=== PATIENT | male | born 1960 | race Two or more races ===

== ENCOUNTER → 2017-01-07 15:16 | Emergency (ER) | payer OTHER ==
[~2017-01-07 15:16] MED LIST: HYDROmorphone* 1 MG/ML 1 ML SYR IV ONE; HYDROmorphone* 1 MG/ML 1 ML SYR ONE; Ketorolac INJ* 30 MG/ML 1 ML VIAL IV ONE; Ondansetron INJ* 2 MG/ML VIAL IV ONE; Ondansetron INJ* 2 MG/ML VIAL ONE
--- NOTE | 2017-01-07 17:44 | RAD ---
Indication: Atraumatic LEFT ankle pain for a few days. Associated swelling. History of RIGHT foot stress fracture. History of renal failure. Comparison: January 03, 2017 Technique: AP, mortise, and lateral views LEFT ankle. Report: Bone density appears decreased throughout. Negative for fracture or radiographic stigmata of stress reaction. Normal articular alignment. Mild talocrural joint space narrowing. Diffuse severe soft tissue swelling grossly unchanged from the January 03, 2017 exam most suspicious for dependent edema secondary to systemic disease. Arterial vascular calcifications. Innumerable soft tissue phleboliths at the lower leg. IMPRESSION: Negative for fracture. No radiographic finding suspicious for osteomyelitis. Nonspecific chronic soft tissue swelling.
[2017-01-07 17:51] LABS: Hematocrit 34 % (42-52); Hemoglobin 11.4 g/dl (14.0-18.0); Mean Corpuscular HGB Conc 34 g/dl (31-36); Mean Corpuscular Hemoglobin 36 pg (27-31); Mean Platelet Volume 8 um3 (7.4-10.4); Red Blood Count 3.17 10^6/ul (4.0-5.4); Red Cell Distribution Width 16 % (10.5-15); White Blood Count 11.1 10^3/ul (3.5-10.8)
[2017-01-07 17:52] LABS: Comments Flag Yes; Mean Corpuscular Volume 107 fL (80-94)
[2017-01-07 18:10] LABS: Albumin 3.6 g/dL (3.2-5.2); BUN/Creatinine Ratio 24.1 (8-20); C Reactive Protein 86.65 mg/L (< 5.00); Calcium 8.6 mg/dL (8.6-10.3); EGFR African American 55.8 (>60); EGFR Non-African American 43.4 (>60); Globulin 3.6 g/dL (2-4); Total Bilirubin 0.5 mg/dL (0.2-1.0); Total Protein 7.2 g/dL (6.4-8.9); Uric Acid 8.3 mg/dL (4.4-7.6)
[2017-01-07 18:12] LABS: Potassium 4.9 mmol/L (3.5-5.0)
[2017-01-07 18:40] LABS: Erythrocyte Sed Rate 98 mm/Hr (0-20)
[2017-01-07 21:26] LABS: Add Path Review? NO
[2017-01-07 21:47] VITALS: BP 144/84
--- NOTE | 2017-01-08 13:59 | ED ---
Philip Aguirre Rebecca, scribed for Geo Royal MD on 01/07/17 at 1640 . Lower Extremity - HPI Summary HPI Summary: Pt is a 56 y/o M with a CC of L ankle pain and swelling. Sx began suddenly 10 days ago and have been constant since onset. Pain is discrete to the l ankle and currently severe, ranked 10/10 and characterized as sharp. Sx aggravated by movement, alleviated by nothing, unchanged by Tylenol and Oxycodone. Denies any mechanism of injury. Pt is unable to ambulate. Pt was evaluated by PCP and given an orthopedic device and a script for oxycodone. - History of Current Complaint Chief Complaint: EDExtremityLower Stated Complaint: LT LEG PAIN Time Seen by Provider: 01/07/17 16:38 Hx Obtained From: Patient Onset of Pain: Prior to Arrival Onset/Duration: Still Present - 10 days Severity Initially: Moderate Severity Currently: Severe Pain Intensity: 10 Pain Scale Used: 0-10 Numeric Timing: Constant Location: Is Discrete @ - L ankle Character Of Pain: Sharp Associated Signs And Symptoms: Positive: Swelling Aggravating Factor(s): Movement Alleviating Factor(s): Nothing Able to Bear Weight: No - Allergies/Home Medications Allergies/Adverse Reactions: Allergies Allergy/AdvReac Type Severity Reaction Status Date / Time Lactose Intolerance Allergy Diarrhea Verified 09/28/12 14:16 PMH/Surg Hx/FS Hx/Imm Hx Endocrine/Hematology History: Denies: Hx Diabetes, Hx Systemic Lupus Erythematosus Cardiovascular History: Reports: Hx Deep Vein Thrombosis, Hx Hypertension Denies: Hx Congestive Heart Failure GI History: Reports: Other GI Disorders - denies abnormal s/s History: Reports: Hx Dialysis - not current in 1991 prior to transplant, Hx Renal Disease, Other Problems/Disorders - kidney transplant pt states other kidney is not functioning,nephrectomy Musculoskeletal History: Reports: Other Musculoskeletal History - right thigh pain Denies: Hx Rheumatoid Arthritis, Hx Osteoporosis - Cancer History Hx Chemotherapy: No - Surgical History Surgery Procedure, Year, and Place: 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, kidney transplant 1992, Infectious Disease History: No Infectious Disease History: Denies: Traveled Outside the [place] in Last 30 Days - Family History Known Family History: Negative: Hypertension - Social History Alcohol Use: None Substance Use Type: Reports: None Smoking Status (MU): Never Smoked Tobacco Review of Systems Positive: Arthralgia - L ankle pain Positive: Other - L ankle swelling All Other Systems Reviewed And Are Negative: Yes Physical Exam Triage Information Reviewed: Yes Vital Signs On Initial Exam: Initial Vitals Temp Pulse Resp BP Pulse Ox 100.2 F 83 18 156/85 100 01/07/17 15:19 01/07/17 15:19 01/07/17 15:19 01/07/17 15:19 01/07/17 15:19 Vital Signs Reviewed: Yes Appearance: Positive: Well-Appearing, No Pain Distress Skin: Positive: Warm, Skin Color Reflects Adequate Perfusion, Dry Head/Face: Positive: Normal Head/Face Inspection Eyes: Positive: Normal ENT: Positive: Normal ENT inspection Neck: Positive: Supple, Nontender Respiratory/Lung Sounds: Positive: Clear to Auscultation, Breath Sounds Present Cardiovascular: Positive: RRR Abdomen Description: Positive: Nontender, Soft Bowel Sounds: Positive: Present Musculoskeletal: Positive: Other - Swollen L ankle, tender in any ROM or to palpation Neurological: Positive: Normal Psychiatric: Positive: Normal Diagnostics - Vital Signs Vital Signs Temp Pulse Resp BP Pulse Ox 01/07/17 16:00 100.2 F 83 20 156/84 100 01/07/17 15:24 100.7 F 01/07/17 15:19 100.2 F 83 18 156/85 100 - Laboratory Lab Results: Lab Results 01/07/17 01/07/17 01/07/17 Range/Units 17:30 17:30 20:15 WBC 11.1 H (3.5-10.8) 10^3/ul RBC 3.17 L (4.0-5.4) 10^6/ul Hgb 11.4 L (14.0-18.0) g/dl Hct 34 L (42-52) % MCV 107 H (80-94) fL MCH 36 H (27-31) pg MCHC 34 (31-36) g/dl RDW 16 H (10.5-15) % Plt Count 329 (150-450) 10^3/ul MPV 8 (7.4-10.4) um3 Neut % (Auto) 91.0 H (38-83) % Lymph % (Auto) 3.9 L (25-47) % Island % (Auto) 4.7 (1-9) % Eos % (Auto) 0.1 (0-6) % Baso % (Auto) 0.3 (0-2) % Absolute Neuts (auto) 10.1 H (1.5-7.7) 10^3/ul Absolute Lymphs (auto) 0.4 L (1.0-4.8) 10^3/ul Absolute Monos (auto) 0.5 (0-0.8) 10^3/ul Absolute Eos (auto) 0 (0-0.6) 10^3/ul Absolute Basos (auto) 0 (0-0.2) 10^3/ul Absolute Nucleated RBC 0 10^3/ul Nucleated RBC % 0 ESR 98 H (0-20) mm/Hr Sodium 135 (133-145) mmol/L Potassium 4.9 (3.5-5.0) mmol/L Chloride 108 (101-111) mmol/L Carbon Dioxide 20 L (22-32) mmol/L Anion Gap 7 (2-11) mmol/L BUN 40 H (6-24) mg/dL Creatinine 1.66 H (0.67-1.17) mg/dL Est GFR ( Amer) 55.8 (>60) Est GFR (Non-Af Amer) 43.4 (>60) BUN/Creatinine Ratio 24.1 H (8-20) Glucose 226 H (70-100) mg/dL Uric Acid 8.3 H (4.4-7.6) mg/dL Calcium 8.6 (8.6-10.3) mg/dL Total Bilirubin 0.50 (0.2-1.0) mg/dL AST 14 (13-39) U/L ALT 11 (7-52) U/L Alkaline Phosphatase 59 (34-104) U/L C-Reactive Protein 86.65 H (< 5.00) mg/L Total Protein 7.2 (6.4-8.9) g/dL Albumin 3.6 (3.2-5.2) g/dL Globulin 3.6 (2-4) g/dL Albumin/Globulin Ratio 1.0 (1-3) Fluid Source Cancelled Fluid Volume Cancelled Fluid Color Cancelled Fluid Appearance Cancelled Fluid WBC Cancelled Fluid RBC Cancelled Fluid Tot Cell Count Cancelled Fluid Neutrophils Cancelled Fluid Band Neutrophils Cancelled Fluid Lymphocytes Cancelled Fluid Reactive Lymphs Cancelled Fluid Monocytes Cancelled Fluid Eosinophils Cancelled Fluid Basophils Cancelled Fluid Promyelocytes Cancelled Fluid Myelocytes Cancelled Fluid Metamyelocytes Cancelled Fluid Blast Cells Cancelled Fluid Nucleated RBCs Cancelled Fluid Other Cells Cancelled Fluid Cell Count Rvw By Cancelled Fluid Crystals Fluid Comment Cancelled 01/07/17 Range/Units 20:15 WBC (3.5-10.8) 10^3/ul RBC (4.0-5.4) 10^6/ul Hgb (14.0-18.0) g/dl Hct (42-52) % MCV (80-94) fL MCH (27-31) pg MCHC (31-36) g/dl RDW (10.5-15) % Plt Count (150-450) 10^3/ul MPV (7.4-10.4) um3 Neut % (Auto) (38-83) % Lymph % (Auto) (25-47) % Island % (Auto) (1-9) % Eos % (Auto) (0-6) % Baso % (Auto) (0-2) % Absolute Neuts (auto) (1.5-7.7) 10^3/ul Absolute Lymphs (auto) (1.0-4.8) 10^3/ul Absolute Monos (auto) (0-0.8) 10^3/ul Absolute Eos (auto) (0-0.6) 10^3/ul Absolute Basos (auto) (0-0.2) 10^3/ul Absolute Nucleated RBC 10^3/ul Nucleated RBC % ESR (0-20) mm/Hr Sodium (133-145) mmol/L Potassium (3.5-5.0) mmol/L Chloride (101-111) mmol/L Carbon Dioxide (22-32) mmol/L Anion Gap (2-11) mmol/L BUN (6-24) mg/dL Creatinine (0.67-1.17) mg/dL Est GFR ( Amer) (>60) Est GFR (Non-Af Amer) (>60) BUN/Creatinine Ratio (8-20) Glucose (70-100) mg/dL Uric Acid (4.4-7.6) mg/dL Calcium (8.6-10.3) mg/dL Total Bilirubin (0.2-1.0) mg/dL AST (13-39) U/L ALT (7-52) U/L Alkaline Phosphatase (34-104) U/L C-Reactive Protein (< 5.00) mg/L Total Protein (6.4-8.9) g/dL Albumin (3.2-5.2) g/dL Globulin (2-4) g/dL Albumin/Globulin Ratio (1-3) Fluid Source Fluid Volume Fluid Color Fluid Appearance Fluid WBC Fluid RBC Fluid Tot Cell Count Fluid Neutrophils Fluid Band Neutrophils Fluid Lymphocytes Fluid Reactive Lymphs Fluid Monocytes Fluid Eosinophils Fluid Basophils Fluid Promyelocytes Fluid Myelocytes Fluid Metamyelocytes Fluid Blast Cells Fluid Nucleated RBCs Fluid Other Cells Fluid Cell Count Rvw By Fluid Crystals None seen Fluid Comment Result Diagrams: 01/07/17 17:30 01/07/17 17:30 Lab Statement: Any lab studies that have been ordered have been reviewed, and results considered in the medical decision making process. - Radiology Ankle XR Radiology Interpretation Completed By: Radiologist - Negative for fracture. No radiographic finding suspicious for osteomyelitis. Nonspecific chronic soft tissue swelling. Lower Extremity Course/Dx - Course Assessment/Plan: Mr. Payan is a 56 y/o M with a CC of L ankle swelling and severe pain for 10 days. No known injury. Cannot bear weight. He was administered Dilaudid, Toradol and Zofran in the ED. Discussed care of Dr. Pederson, who will evaluate pt in the ED. After evaluation, Dr. Pederson decided to diagnostically aspirate the joint. No fluid crystals seen in the fluid obtained via aspiration. Pt will be D/C to home with a Dx of synovitis with a followup with Dr. Pederson. - Diagnoses Provider Diagnoses: Synovitis - Physician Notifications Discussed Care of Patient With: Dr. Pederson, who will evaluate pt in the ED. After evaluation, at 1935, Dr. Pederson has decided to apirate the joint, diagnostically. Time Discussed With Above Provider: 19:01 Discharge - Discharge Plan Condition: Stable Disposition: HOME Referrals: Nehemiah Pederson MD [Medical Doctor] - (Follow up with Dr. Pederson next week. ) The documentation as recorded by the Philip pal Rebecca accurately reflects the service I personally performed and the decisions made by , Geo Royal MD.
--- NOTE | 2017-01-08 17:26 | CONS ---
CONSULTATION NOTE: DATE OF CONSULT: 01/07/17 - EMERGENCY DEPT HISTORY: The patient is a 56-year-old man, status post kidney transplant in 1992, with chronic lower extremity edema, who I myself had seen in clinic on 04/14 for a complaint of left posterior ankle pain, and diagnosed with left Achilles tendinitis, who presented to the emergency room on 01/07/17 with an acute worsening of that left ankle pain. ER staff informed me that on their exam with any passive range of motion of the left ankle, the patient had severe pain. The tenderness about the ankle also worried them for a left ankle joint infection. The patient had presented to the emergency department with a low-grade temperature 100.2 and is on many immunosuppressant medications. The patient had a history of gout in the contralateral right great toe MP joint, but described this pain as more severe. He described it as 10/10 and sharp. He described it as greatly worsened with movement of the left ankle and without any improvement with home care provided previously. I had seen the patient in clinic on 01/03/17. 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 He had had a contralateral right lower extremity DVT and is on chronic Coumadin. I had also noted 2 gouty attacks in the contralateral right foot. The patient presented to me with a complaint of 5 days of left posterior heel pain without any clear trigger. The patient's primary care doctor had started him on oral prednisone over and above the low- dose oral prednisone that the patient takes chronically as a result of being a kidney transplant patient. The patient had informed me that he did not believe that the prednisone had reduced his symptoms. The patient told me that he normally ambulates about the community without an assist device. On examination in the office, the patient had tenderness to palpation and re- creation of his pain with palpation of the Achilles tendon. He did not have pain or weakness with resisted active plantar flexion of the ankle, and he did have some pain with hyperpassive dorsiflexion of the ankle. He had some mild gastrocnemius tenderness to palpation. I diagnosed him with left Achilles tendinitis as well as chronic bilateral lower extremity edema. I instructed that he wear a tall walking boot that would rest the Achilles tendon and undergo physical therapy for Achilles tendon stretching and strengthening. I instructed him to follow up with me in 2 weeks to see if he had had an improvement in symptoms. The patient states that since that clinic visit, he had been wearing the tall boot some of the time. He finds the boot heavy and awkward to wear. The patient has not yet done physical therapy. The patient has been taking Tylenol for pain as well as oxycodone, the latter prescribed by his primary care physician. The patient reported some chills on 01/06/17, but had not taken his own temperature at home. His pain was worsening and so he presented to the emergency department. The patient reported to me that his pain was much improved by the time he saw me in the emergency department after he had received medication. Checking the ER tracking system, the patient had received Dilaudid 1 mg IV only. Toradol had been written for by the ED staff, but not delivered. It was just a single dose of Dilaudid, albeit 1 mg IV. No numbness or tingling. No other current joint pain. No current fevers, sweats, chills. PAST MEDICAL HISTORY: 1. Hypertension. 2. Cholelithiasis without obstruction. 3. Lymphedema of bilateral lower extremities. 4. Hypertriglyceridemia. 5. Gout. 6. Tubular adenoma. 7. Vitamin D and B12 deficiency. 8. DVT. 9. Chronic renal failure. 10. Macrocytic anemia. 11. Osteoporosis. 12. Venous insufficiency, bilateral lower extremities. PAST SURGICAL HISTORY: Orthotopic kidney transplant. MEDICATIONS: 1. Prednisone. 2. Vitamin D. 3. Cyanocobalamin. 4. Coumadin. 5. Imuran. 6. Atenolol. 7. Procardia. 8. Clonidine. 9. Cyclosporin. ALLERGIES: No known drug allergies. REVIEW OF SYSTEMS: No numbness or tingling. No other joint pain. No fevers, sweats, or chills. No chest pain, shortness of breath, skipped heart beats, or abdominal pain. PHYSICAL EXAM: Temperature 100.2 degrees Fahrenheit, pulse 83, respirations 18 , blood pressure 156/85, and pulse oximetry was 100% on room air. These were obtained at 3:19 p.m. on 01/07/17. No acute distress. The patient seems very comfortable, lying in a stretcher in the emergency department. He does appear somewhat despondent, depressed. Alert and oriented x3. Appropriate mood and affect. I did not assess the patient's gait. Well-coordinated bilateral upper and lower extremities. Bilateral lower extremities have edema of the lower legs, ankles, and feet, pitting, unchanged since my clinic visit on 01/03/17, 4 days previous. Left ankle exam reveals no increased soft tissue swelling compared to contralateral right ankle. No bruising. No skin defect. No skin erythema or increased warmth. Tenderness to palpation, mild about the anterior tibial talar joint. No pain whatsoever with passive range of motion of the left ankle prior to reaching the terminal ranges of motion. The patient's left ankle passive range of motion was 15 degrees of dorsiflexion and 30 degrees of plantar flexion. The patient had some mild discomfort at terminal dorsiflexion and plantar flexion, but within that range, had no discomfort whatsoever with rapid passive range of motion. No pain with resisted active dorsiflexion and plantar flexion, inversion or eversion of the ankle. Neurovascularly intact distally. Positive tenderness to palpation of the calcaneus at the insertion of the Achilles tendon. No Achilles tendon tenderness to palpation. No gastrocnemius tenderness to palpation. The patient's pain is reproduced with palpation of the insertion of the Achilles tendon. IMAGING: Three x-ray views of the left ankle obtained in the emergency department show some global joint space narrowing about the midfoot and ankle joints, but no osteophytes. No fracture. There are some subcutaneous calcifications present about the left ankle. ASSESSMENT: 1. Left ankle insertional Achilles tendinitis. 2. Possible left ankle gouty arthropathy. PLAN: 1. I spoke with the emergency department staff and confirmed that the patient had indeed been in 10/10, distressing pain when he first arrived in the emergency department. I confirmed that with any passive range of motion with the ED staff, the patient was in severe pain. This is entirely different from my clinical exam. So, I needed to confirm this. 2. Although I thought gouty arthropathy was less likely given the significant comfort in which I found the patient on my physical exam, I desired to rule out a gouty attack given the patient's anterior tibiotalar joint tenderness to palpation, residual; his low-grade temperature; his slightly elevated white blood cell count of 11.1 in the emergency department; and his significant level of pain prior to receiving Dilaudid in the emergency department. 3. Aspiration of left ankle joint was performed. Verbal consent, sterile technique, tolerated well. I injected 8 cc of lidocaine with epinephrine into the subcutaneous tissue at the level of the anteromedial portals for ankle arthroscopy as well as into the joint itself. I then returned 10 minutes later and performed an aspiration of the ankle joint in the same location. I aspirated 3 cc of red- tinged clear fluid. No clear purulence whatsoever. No cloudiness whatsoever. I applied a dressing and wrapped that with Coban over the ankle and instructed the patient to keep that aspiration site covered for 3 days to prevent an infection. 4. Sent the fluid sample for crystals, Gram stain, culture, and cell count. Crystals came back as negative, but the other 3 values could not be obtained at the lab and they stated it was because there was clotting of the sample. This is a surprise to me since there did not seem to be much blood at all in that sample. 5. Nonetheless, aspiration was successful in that it ruled out a gouty attack by crystals being negative. 6. Therefore, the patient's only diagnosis in my mind is insertional left Achilles tendinitis. Based on the patient's response to Dilaudid pain medication, there might be a psychiatric overlay to this as well. 7. I recommended that the patient choose shoe wear that is most comfortable, be it the tall walking boot or something else. 8. I recommend physical therapy for stretching and strengthening. 9. The patient may follow up with me as planned in a week and a half or sooner as needed. [id number]/CPS #: [id number] MTDD
== END | disposition home or self-care (01) ==
LOC: ED 15:16
DX: M76.62 Achilles tendinitis, left leg (principal); Z94.0 Kidney transplant status; I10 Essential (primary) hypertension; E78.1 Pure hyperglyceridemia; M10.9 Gout, unspecified; Z86.718 Personal history of other venous thrombosis and embolism; M81.0 Age-related osteoporosis without current pathological fracture
CPT/HCPCS: 20605; 36415; 80053; 84550; 85025; 85652; 86140; 87040; 87070; 87205; 87640; 87641; 89060; 96374; 96375; 99282; J1170; J1885; J2405

== ENCOUNTER 2017-01-28 15:23 | Emergency (ER) | payer OTHER ==
[2017-01-28 16:11] VITALS: BP 110/70
--- NOTE | 2017-01-28 22:47 | UC ---
Jose Aguirre SooYoung, scribed for Stephen Blanca MD on 01/28/17 at 1617 . Lower Extremity/Ankle HPI - HPI Summary HPI Summary: A 56 y/o M [place] [facility] [place] pain onset yesterday. Associated sx: erythema, edema, maxT of 101 F, chills, diaphoresis; edema to RLE. Denies CP, SOB, nausea, calf tenderness. Pt notes having issues with his LLE this month including L ankle tap, physical therapy. Alleviating factors: Tylenol for fever. PMHx: kidney transplant in 1992. Pt takes Warfarin, and anti-rejection medications. Non-smoker. Pt did not speak to his PCP today. - History of Current Complaint Chief Complaint: UCLowerExtremity Stated Complaint: LEG PAIN,FEVER Hx Obtained From: Patient Onset/Duration: Lasting Days - YESTERDAY, Still Present Severity Currently: Severe Pain Intensity: 10 Pain Scale Used: 0-10 Numeric Alleviating Factor(s): OTC Meds - alleviated fever - Allergies/Home Medications Allergies/Adverse Reactions: Allergies Allergy/AdvReac Type Severity Reaction Status Date / Time Lactose Intolerance Allergy Diarrhea Verified 01/28/17 16:12 PMH/Surg Hx/FS Hx/Imm Hx Previously Healthy: No Cardiovascular History: Hypertension, Deep Vein Thrombosis - Surgical History Surgical History: Yes Surgery Procedure, Year, and Place: 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, kidney transplant 1992, - Family History Known Family History: Negative: Hypertension - Social History Occupation: Employed Full-time Lives: With Family Alcohol Use: None Substance Use Type: None Smoking Status (MU): Never Smoked Tobacco Review of Systems Constitutional: Fever, Chills, Other - pos: diaphoresis Skin: Other - pos: erythema and warmth to LLE Musculoskeletal: Edema - bilat LE, Myalgia - pain LLE All Other Systems Reviewed And Are Negative: Yes Physical Exam Triage Information Reviewed: Yes Vital Signs: Initial Vital Signs Temp 98.7 F 01/28/17 15:30 Pulse 73 01/28/17 15:30 Resp 18 01/28/17 15:30 BP 114/63 01/28/17 15:30 Pulse Ox 98 01/28/17 15:30 Vital Signs Reviewed: Yes - Additional Comments The patient is well-nourished in no acute distress and in no acute pain. The skin is WARM TO TOUCH, DIAPHORETIC. HEENT: The head is normocephalic and atraumatic. The pupils are equal and reactive. The conjunctivae are clear and without drainage. Nares are patent and without drainage. Mouth reveals moist mucous membranes and the throat is without erythema and exudate. The external ears are intact. The ear canals are patent and without drainage. PERFORATED RIGHT TM. Neck is supple with full range of motion and non-tender. There are no carotid bruits. There is no neck vein distension. Respiratory: Chest is non-tender. Lungs are clear to auscultation and breath sounds are symmetrical and equal. Cardiovascular: Heart is regular rate and rhythm. There is no murmur or rub auscultated. There is no peripheral edema and pulses are symmetrical and equal. Abdomen: The abdomen is soft and non-tender. There is no organomegaly palpated. : L GROIN ADENOPATHY. Musculoskeletal: There is no back pain noted. Extremities are non-tender with full range of motion. There is good capillary refill. There is no peripheral edema or calf tenderness elicited. POPLITEAL PULSE IS GOOD; LEG IS WARM, RED STREAKS STARTING ON 1ST THIRD TOE TO DORSUM OF FOOT EXTENDING UP LEG; MARKED EDEMA; L CALF TENDERNESS. NO ANKLE PAIN. Neurological: Patient is alert and oriented to person, place and time. The patient has symmetrical motor strength in all four extremities. Cranial nerves are grossly intact. Deep tendon reflexes are symmetrical and equal in all four extremities. Psychiatric: The patient has an appropriate affect and does not exhibit any anxiety or depression. Lower Extremity Course/Dx - Course Course Of Treatment: Pt medications reviewed this visit. Normal BP reading and no follow-up instructions required. - Differential Dx/Diagnosis Differential Diagnosis/HQI/PQRI: Cellulitis, Osteomyelitis, Tendonitis Provider Diagnoses: Cellulitis of L leg - Physician Notifications Discussed Patient Care With: Dr. Gonzalez, nephrology; recommends D/C with Clindamyacin, f/u with him early next week. Time Discussed With Above Provider: 16:45 Instructed by Provider To: Have Pt Call For Appt. - early next week Discharge - Discharge Plan Condition: Stable Disposition: HOME Prescriptions: Clindamycin Cap(NF) [Cleocin 300 mg Cap(NF)] 300 mg PO TID #30 cap Patient Education Materials: Cellulitis (ED), Clindamycin (By mouth) Referrals: Elvira Hays MD [Primary Care Provider] - Reji Gonzalez MD [Medical Doctor] - 3 Days (F/U with Dr. Gonzalez early next week.) Additional Instructions: Follow up with Dr. Gonzalez early next week. Go to the Emergency Department if your symptoms worsen. The documentation as recorded by the Jose pal SooYoung accurately reflects the service I personally performed and the decisions made by me, Stephen Blanca MD.
== END 2017-01-28 17:08 | disposition home or self-care (01) ==
LOC: UCEAST 15:23
DX: L03.116 Cellulitis of left lower limb (principal); Z86.718 Personal history of other venous thrombosis and embolism; Z79.01 Long term (current) use of anticoagulants; I10 Essential (primary) hypertension; Z94.0 Kidney transplant status
CPT/HCPCS: 99202; G0463

== ENCOUNTER 2017-01-29 11:29 | Emergency (ER) | payer OTHER ==
[2017-01-29] MEDS ORDERED: Clindamycin 600 MG IVPREMIX(* 600 MG/50 ML SDV IV ONE (11:46)
[2017-01-29] MEDS: NS 0.9% 1000 ML* 1,000 ML IV ONE ×2 (11:46→12:51)
[2017-01-29 12:09] LABS: Comments Flag Yes; Hematocrit 30 % (42-52); Hemoglobin 10.1 g/dl (14.0-18.0); Mean Corpuscular HGB Conc 34 g/dl (31-36); Mean Corpuscular Hemoglobin 36 pg (27-31); Mean Platelet Volume 8 um3 (7.4-10.4); Red Blood Count 2.82 10^6/ul (4.0-5.4); Red Cell Distribution Width 16 % (10.5-15); White Blood Count 16.6 10^3/ul (3.5-10.8)
[2017-01-29 12:10] LABS: Add Diff/Slide Review? Slide Review Added; Mean Corpuscular Volume 107 fL (80-94)
[2017-01-29 12:24] LABS: Albumin 3.2 g/dL (3.2-5.2); BUN/Creatinine Ratio 20.5 (8-20); C Reactive Protein 240.55 mg/L (< 5.00); Calcium 8.5 mg/dL (8.6-10.3); EGFR African American 46.3 (>60); Globulin 3.2 g/dL (2-4); Magnesium 1.7 mg/dL (1.9-2.7); Phosphorus 2.1 mg/dL (2.5-5.0); Potassium 3.6 mmol/L (3.5-5.0); Total Bilirubin 0.8 mg/dL (0.2-1.0); Total Protein 6.4 g/dL (6.4-8.9); Troponin I 0.01 ng/mL (<0.04)
[2017-01-29] MEDS ORDERED: NS 0.9% 1000 ML* 1,000 ML IV ONE (12:48)
--- NOTE | 2017-01-29 12:57 | RAD ---
Indication: Fever. Single frontal view of the chest performed at 12:15 was reviewed. Comparison is made with previous exam dated July 18, 2012. No mediastinal shift is noted. Mild cardiomegaly is noted. No evidence of alveolar consolidation is noted. No pneumothorax is identified. IMPRESSION: NO ACTIVE CARDIOPULMONARY DISEASE IS NOTED.
--- NOTE | 2017-01-29 14:45 | ED ---
Philip Aguirre Rebecca, scribed for Vineet Grewal MD on 01/29/17 at 1136 . Lower Extremity - HPI Summary HPI Summary: Pt is a 56 y/o M BIBA who presents to ED c/o bilateral LE pain and swelling. Sx began gradually 3 days ago and have been constant and worsening since onset. Pain is bilateral, though significantly worse in the LLE. Pain is currently severe, ranked 10/10 and characterized as sharp. Pt reports he is unable to ambulate as of this morning. Sx aggravated by ambulation, alleviated by nothing , unchanged by Tylenol (last dose taken last night). Additionally c/o mild SOB and fever. Denies CP. Pt was evaluated by [facility] yesterday with a Dx of cellulitis for which he was prescribed Abx which are not alleviating sx. No PMHx DM, CHF. PSHx kidney transplant (1992) for which he is on steroids. - History of Current Complaint Chief Complaint: EDExtremityLower Stated Complaint: LEG PAIN Hx Obtained From: Patient Onset of Pain: Prior to Arrival Onset/Duration: Days Severity Initially: Moderate Severity Currently: Severe Pain Intensity: 10 Pain Scale Used: 0-10 Numeric Timing: Constant Location: Is Discrete @ - Bilateral LE, worse in the LLE Character Of Pain: Sharp Associated Signs And Symptoms: Positive: Fever, Other - mild SOB, denies CP Aggravating Factor(s): Ambulation Alleviating Factor(s): Nothing Able to Bear Weight: No - as of this morning - Allergies/Home Medications Allergies/Adverse Reactions: Allergies Allergy/AdvReac Type Severity Reaction Status Date / Time Lactose Intolerance Allergy Diarrhea Verified 01/28/17 16:12 Home Medications: Home Medications Warfarin TAB(*) [Coumadin TAB(*)] 5 mg PO SEE INSTRUCTIONS 01/29/17 [History Confirmed 01/29/17] PMH/Surg Hx/FS Hx/Imm Hx Endocrine/Hematology History: Denies: Hx Diabetes, Hx Systemic Lupus Erythematosus Cardiovascular History: Reports: Hx Deep Vein Thrombosis, Hx Hypertension - ON MEDS Denies: Hx Congestive Heart Failure, Hx Pacemaker/ICD GI History: Reports: Other GI Disorders - denies abnormal s/s History: Reports: Hx Dialysis - not current in 1991 prior to transplant, Hx Renal Disease, Other Problems/Disorders - kidney transplant pt states other kidney is not functioning,nephrectomy Musculoskeletal History: Reports: Other Musculoskeletal History - right thigh pain Denies: Hx Rheumatoid Arthritis, Hx Osteoporosis Sensory History: Denies: Hx Hearing Aid Psychiatric History: Denies: Hx Panic Disorder - Cancer History Hx Chemotherapy: No - Surgical History Surgery Procedure, Year, and Place: 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, kidney transplant 1992, Infectious Disease History: Denies: Traveled Outside the [place] in Last 30 Days - Family History Known Family History: Negative: Hypertension - Social History Alcohol Use: None Substance Use Type: Reports: None Smoking Status (MU): Never Smoked Tobacco Review of Systems Positive: Fever Negative: Chest Pain Positive: Shortness Of Breath - mild Positive: Arthralgia - bilateral LE pain, significantly worse in the LLE Positive: Other - Bilateral LE swelling Neurological: Negative Psychological: Normal All Other Systems Reviewed And Are Negative: Yes Physical Exam - Summary Physical Exam Summary: Gen: Moderately ill appearing, moderate pain distress. Skin: warm, color reflects adequate perfusion, dry Head: normal Eyes: EOMI, MANDIE ENT: normal Neck: supple, nontender Resp: CTA, breath sounds present Cardio: tachycardia Abd: soft, nontender Bowel: present Musc: strength/ROM intact, bilateral pedal edema, the LLE is erythematous and tender to touch Neuro: normal, sensory/motor intact, A&O x3 Psych: affect/mood appropriater Triage Information Reviewed: Yes Vital Signs On Initial Exam: Initial Vitals Temp Pulse Resp BP Pulse Ox 100.7 F 105 20 158/78 100 01/29/17 11:31 01/29/17 11:31 01/29/17 11:31 01/29/17 11:31 01/29/17 11:31 Vital Signs Reviewed: Yes Diagnostics - Vital Signs Vital Signs Temp Pulse Resp BP Pulse Ox 01/29/17 14:00 73 113/66 94 01/29/17 13:30 73 119/68 95 01/29/17 13:00 73 124/72 95 01/29/17 12:30 77 115/68 96 01/29/17 12:00 84 134/73 98 01/29/17 11:47 87 99 01/29/17 11:46 137/72 01/29/17 11:31 100.7 F 105 20 158/78 100 - Laboratory Lab Results: Lab Results 01/29/17 01/29/17 01/29/17 Range/Units 11:50 11:50 11:50 WBC 16.6 H (3.5-10.8) 10^3/ul RBC 2.82 L (4.0-5.4) 10^6/ul Hgb 10.1 L (14.0-18.0) g/dl Hct 30 L (42-52) % MCV 107 H (80-94) fL MCH 36 H (27-31) pg MCHC 34 (31-36) g/dl RDW 16 H (10.5-15) % Plt Count 208 (150-450) 10^3/ul MPV 8 (7.4-10.4) um3 Neut % (Auto) 86.6 H (38-83) % Lymph % (Auto) 8.0 L (25-47) % Moca % (Auto) 5.1 (1-9) % Eos % (Auto) 0.1 (0-6) % Baso % (Auto) 0.2 (0-2) % Absolute Neuts (auto) 14.4 H (1.5-7.7) 10^3/ul Absolute Lymphs (auto) 1.3 (1.0-4.8) 10^3/ul Absolute Monos (auto) 0.8 (0-0.8) 10^3/ul Absolute Eos (auto) 0 (0-0.6) 10^3/ul Absolute Basos (auto) 0 (0-0.2) 10^3/ul Absolute Nucleated RBC 0 10^3/ul Nucleated RBC % 0 INR (Anticoag Therapy) 3.70 H (0.89-1.11) APTT 40.6 H (26.0-36.3) seconds Sodium 135 (133-145) mmol/L Potassium 3.6 (3.5-5.0) mmol/L Chloride 108 (101-111) mmol/L Carbon Dioxide 19 L (22-32) mmol/L Anion Gap 8 (2-11) mmol/L BUN 40 H (6-24) mg/dL Creatinine 1.95 H (0.67-1.17) mg/dL Est GFR ( Amer) 46.3 (>60) Est GFR (Non-Af Amer) 36.0 (>60) BUN/Creatinine Ratio 20.5 H (8-20) Glucose 201 H (70-100) mg/dL Lactic Acid (0.5-2.0) mmol/L Calcium 8.5 L (8.6-10.3) mg/dL Phosphorus 2.1 L (2.5-5.0) mg/dL Magnesium 1.7 L (1.9-2.7) mg/dL Total Bilirubin 0.80 (0.2-1.0) mg/dL AST 10 L (13-39) U/L ALT 10 (7-52) U/L Alkaline Phosphatase 60 (34-104) U/L Total Creatine Kinase 26 (10-223) U/L CK-MB (CK-2) 1.0 (0.6-6.3) ng/mL Troponin I 0.01 (<0.04) ng/mL C-Reactive Protein 240.55 H (< 5.00) mg/L B-Natriuretic Peptide ( - 100) pg/mL Total Protein 6.4 (6.4-8.9) g/dL Albumin 3.2 (3.2-5.2) g/dL Globulin 3.2 (2-4) g/dL Albumin/Globulin Ratio 1.0 (1-3) Lipase 41 (11.0-82.0) U/L 01/29/17 01/29/17 Range/Units 11:50 11:50 WBC (3.5-10.8) 10^3/ul RBC (4.0-5.4) 10^6/ul Hgb (14.0-18.0) g/dl Hct (42-52) % MCV (80-94) fL MCH (27-31) pg MCHC (31-36) g/dl RDW (10.5-15) % Plt Count (150-450) 10^3/ul MPV (7.4-10.4) um3 Neut % (Auto) (38-83) % Lymph % (Auto) (25-47) % Moca % (Auto) (1-9) % Eos % (Auto) (0-6) % Baso % (Auto) (0-2) % Absolute Neuts (auto) (1.5-7.7) 10^3/ul Absolute Lymphs (auto) (1.0-4.8) 10^3/ul Absolute Monos (auto) (0-0.8) 10^3/ul Absolute Eos (auto) (0-0.6) 10^3/ul Absolute Basos (auto) (0-0.2) 10^3/ul Absolute Nucleated RBC 10^3/ul Nucleated RBC % INR (Anticoag Therapy) (0.89-1.11) APTT (26.0-36.3) seconds Sodium (133-145) mmol/L Potassium (3.5-5.0) mmol/L Chloride (101-111) mmol/L Carbon Dioxide (22-32) mmol/L Anion Gap (2-11) mmol/L BUN (6-24) mg/dL Creatinine (0.67-1.17) mg/dL Est GFR ( Amer) (>60) Est GFR (Non-Af Amer) (>60) BUN/Creatinine Ratio (8-20) Glucose (70-100) mg/dL Lactic Acid 1.6 (0.5-2.0) mmol/L Calcium (8.6-10.3) mg/dL Phosphorus (2.5-5.0) mg/dL Magnesium (1.9-2.7) mg/dL Total Bilirubin (0.2-1.0) mg/dL AST (13-39) U/L ALT (7-52) U/L Alkaline Phosphatase (34-104) U/L Total Creatine Kinase (10-223) U/L CK-MB (CK-2) (0.6-6.3) ng/mL Troponin I (<0.04) ng/mL C-Reactive Protein (< 5.00) mg/L B-Natriuretic Peptide 352 H ( - 100) pg/mL Total Protein (6.4-8.9) g/dL Albumin (3.2-5.2) g/dL Globulin (2-4) g/dL Albumin/Globulin Ratio (1-3) Lipase (11.0-82.0) U/L Result Diagrams: 01/29/17 11:50 01/29/17 11:50 Lab Statement: Any lab studies that have been ordered have been reviewed, and results considered in the medical decision making process. - EKG 1227 Cardiac Rate: NL - 77 bpm EKG Rhythm: Sinus Rhythm EKG Interpretation: Concave up ST elevations in V2-V3, no ectopy Lower Extremity Course/Dx - Course Course Of Treatment: DR PICHARDO SAW PATIENT IN ED. DUE TO PATIENT BEING A KIDNEY TRANSPLANT RECIPIENT, PATIENT WILL BE TRANSFERRED TO THE [facility] TRANSPLANT [facility]. DR PICHARDO SPOKE WITH DR BROWNING AT THE TRANSPLANT CENTER. ACCEPTING IS DR LEVY. TRANSFER STABLE. Assessment/Plan: Pt is a 56 y/o M BIBA who presents with a CC of bilateral LE pain and swelling, particularly in the LLE, for 3 days. Pt was unable to ambulate, beginning this morning. He was evaluated yesterday by [facility] with a Dx of cellulitis and given an Rx for Abx, which did not alleviate sx.Discussed care of pt with Dr. Pichardo, who talked to Dr. Browning at [facility] who stated he would talk to the transfer center to get the pt accepted. - Diagnoses Provider Diagnoses: Left leg cellulitis, Kidney transplant recipient - Physician Notifications Discussed Care Of Patient With: Dr. Pichardo - English Division Chair who will evaluate pt in the ED. Time Discussed With Above Provider: 12:14 Reason For Transfer: Specialty or service not available at [place]. - KIDNEY TRANSPLANT CENTER - Critical Care Time Critical Care Time: 30-74 min Discharge - Discharge Plan Condition: Stable Disposition: TRANS HIGHER LVL OF CARE FAC Referrals: Elvira Hays MD [Primary Care Provider] - The documentation as recorded by the Philip pal Rebecca accurately reflects the service I personally performed and the decisions made by me, Vineet Grewal MD.
[2017-01-29 16:36] VITALS: BP 113/66
--- NOTE | 2017-01-30 05:22 | PN ---
PROGRESS NOTE: DATE OF SERVICE: HISTORY: Mr. Alcazar is a 56-year-old gentleman with a history of cadaveric renal transplant, who Carla morillo known for a number of years. Approximately 1 month ago, he had the onset of left ankle pain. Ruth jack ankle was swollen, painful, and tender, but it was not hot and red. He presented to the emergenc y room where the ankle was tapped and was culture negative. However, unfortunately the cell counts could not be done. He was slightly better for approximately a week and then the ankle began to be v jan uncomfortable again. He eventually represented to the emergency room and at that time, his ankl e was red and hot and swollen. It was tapped again and was also culture negative and was also cryst al negative, but did have a pattern on the cell count suggestive of hemarthrosis. He was again slig htly better for a few days and the ankle began to hurt worse and he now developed redness to the ant erior surface of his left leg, which was expanding. He was seen in the [facility] and ruth powell was felt to have cellulitis and he was placed on clindamycin after discussion between me and Dr. Cyril duncan who saw him. PAST MEDICAL HISTORY: Significant for hypertension. He has a history of a stress fracture to his r ight foot. He has a history of osteoporosis, chronic lymphedema. MEDICATIONS: Include: 1. Prednisone. 2. Warfarin. 3. Imuran. 4. Atenolol. 5. Procardia. 6. Clonidine. 7. Cyclosporin. 8. Vitamin D. PHYSICAL EXAMINATION: At this time, my exam was somewhat limited to the leg. He has a temperature to 100.7. His blood pressure is 134/73 with a pulse of 84. His left leg is hot, it is darkly eryth ematous and not typical of standard appearance of cellulitis. It almost looks like there could have been bleeding into the skin. The ankle itself is quite tender as is the left lower extremity. IMPRE SSION: 1. Probable cellulitis, refractory to clindamycin. 2. Possible hemarthrosis. 3. Renal transplant. After discussing the case with Dr. Grewal, it is our opinion that he should probably be transferre d to the transplant team at the [facility]. [id number]/[facility] #: [id number]
== END 2017-01-29 16:44 | disposition short-term general hospital (02) ==
LOC: ED 11:29
DX: L03.116 Cellulitis of left lower limb (principal); Z94.0 Kidney transplant status; R50.9 Fever, unspecified; R06.02 Shortness of breath
CPT/HCPCS: 36415; 71010; 80053; 82550; 82553; 83605; 83690; 83735; 83880; 84100; 84484; 85025; 85610; 85730; 86140; 87040; 93005; 96360; 99284

== ENCOUNTER 2019-06-04 13:50 | Emergency (ER) | payer OTHER ==
--- OUTSIDE RECORDS SUMMARY | 2019-06-04 13:56 | XMS REPORT | Continuity of Care Document ---
:1960 External Reference #:[id number] Author Name Elvira Hays M.D. (transmitted by agent of provider Lizette Lester) Address [address], [place] [address] Care Team Providers Name Role Phone Reji Gonzalez MD - Nephrology Care Team Information Manager [employer] [phone] Elvira Hays MD - Internal Care Team Information Manager [employer] Medicine Problems Active Problems Provider Date Osteoporosis Smith Thompson M.D. Onset: 06/27/2012 Anemia Smith Thompson M.D. Onset: 06/27/2012 Note: macrocytic anemia Chronic renal failure Smith Thompson M.D. Onset: 06/27/2012 Transplant of kidney Smith Thompson M.D. 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 Onset: 11/07/2014 Note: related to cyclosporine Disorder of lipid metabolism Elvira Hays M.D. Onset: 11/07/2014 Note: low HDL 42 Hypertriglyceridemia Elvira Hays M.D. Onset: 11/07/2014 Note: 233 in 2012 improved to 174 Tubular adenoma Elvira Hays M.D. Onset: 04/19/2014 Note: repeat due in 2019 Acquired lymphedema of lower extremity Elvira Hays M.D. Onset: 02/24/2015 Venous insufficiency of leg Onset: Vitamin B12 deficiency (non anemic) Elvira Hays M.D. Onset: 11/23/2012 Cholelithiasis without obstruction Elvira Hays M.D. Onset: 12/07/2016 Essential hypertension Elvira Hays M.D. Onset: 01/03/2017 Social History Type Date Description Comments Sex Unknown Tobacco Use Start: Unknown Never Smoked Cigarettes Smoking Status Reviewed: 05/29/19 Never Smoked Cigarettes ETOH Use 08/07/2013 Denies alcohol use Tobacco Use Start: Unknown Patient has never smoked Recreational Drug Use Denies Drug Use Exercise Type/Frequency Exercises sporadically Allergies, Adverse Reactions, Alerts Description No Known Drug Allergies Medications Active Medications SIG Qnty Indications Ordering Date Provider Furosemide 1 by mouth every 5tabs I89.0 Elvira 05/29/2019 20mg Tablets other day Eula Hays Imuran take 1 tab by mouth 90tabs Unknown 04/29/2019 50mg Tablets once daily Procardia XL 2 tab by mouth every 60tabs Kim Prince, 12/26/2018 60mg day MD Tablets ER 24HR Warfarin Sodium take as directed 45tabs Elvira 03/14/2017 5mg Eula Hays Tablets Cyanocobalamin inject one 1units [facility] 06/28/2016 milliliters (cc) Eula Hays 1000mcg/ML Solution intramuscularly weekly X 1 month then once a month Compression Stockings X large size 1Pair 453.50 Elvira 11/07/2014 Eula Hays Misc Prednisone 1 po qd 30tabs Unknown 10mg Tablets Clonidine HCL Take 1 Tablet By 60tabs Elvira 0.1mg Mouth Twice Daily Eula Hays Tablets Cyclosporine 1 cap by mouth twice 60caps Unknown 100mg a day Capsules Atenolol Take 1 Tablet By 90tabs Elvira 50mg Tablets Mouth Once Daily Eula Hays History Medications Azithromycin take 2 tablets 6tabs J06.9 An Coates MD 01/31/2019 - 250mg today; then one 02/20/2019 Tablets tablet daily Medications Administered in Office Medication SIG Qnty Indications Ordering Provider Date B-12 Injection Elvira Hays M.D. 05/29/2019 Injection B-12 Injection Nurse Visit A 05/15/2019 Injection B-12 Injection Nurse Visit A 04/04/2019 Injection B-12 Injection Nurse Visit A 01/26/2019 Injection B-12 Injection Nurse Visit A 11/27/2018 Injection B-12 Injection Nurse Visit C 10/23/2018 Injection B-12 Injection Nurse Visit C 09/01/2018 Injection B-12 Injection Nurse Visit C 07/10/2018 Injection B-12 Injection Nurse Visit C 05/31/2018 Injection B-12 Injection Nurse Visit C 03/30/2018 Injection B-12 Injection Nurse Visit C 02/02/2018 Injection B-12 Injection Nurse Visit C 12/22/2017 Injection B-12 Injection Nurse Visit C 11/10/2017 Injection B-12 Injection Nurse Visit C 10/10/2017 Injection B-12 Injection Nurse Visit C 09/05/2017 Injection B-12 Injection Nurse Visit C 07/18/2017 Injection B-12 Injection Nurse Visit C 06/13/2017 Injection B-12 Injection Nurse Visit C 05/05/2017 Injection B-12 Injection Nurse Visit A 03/29/2017 Injection B-12 Injection Nurse Visit A 03/29/2017 Injection B-12 Injection Nurse Visit C 03/03/2017 Injection B-12 Injection Nurse Visit A 01/26/2017 Injection B-12 Injection Nurse Visit C 12/21/2016 Injection B-12 Injection Nurse Visit C 10/25/2016 Injection B-12 Injection Nurse Visit C 09/27/2016 Injection B-12 Injection Nurse Visit C 08/19/2016 Injection B-12 Injection Nurse Visit C 07/21/2016 Injection B-12 Injection Nurse Visit C 07/16/2016 Injection B-12 Injection Nurse Visit C 07/08/2016 Injection B-12 Injection Nurse Visit C 06/29/2016 Injection Immunizations CPT Code Status Date Vaccine Lot # [id number] Given 07/10/2018 Influenza Virus Vaccine, Quadrivalent, Split, [id number] Preservative Free 32991 Given 06/09/2016 Influ Virus Vaccine, Quadrivalent, Split Virus, [id number] [address] Given 07/16/2015 Influenza Virus Vaccine, Quadrivalent, Split, [id number] Preservative Free 17118 Given 08/08/2014 Pneumococcal Conjugate Vaccine 13 Valent For [id number] Intramuscular Use 89579 Given 08/08/2014 Flu Vaccine Split Virus Preservative Free For [id number] Indiv 3Yr Older 79688 Given 10/31/2013 Tdap - Tetanus/Diptheria/Acellular Pertussis [id number] 13132 Given 07/01/2013 Influenza Virus 3Yrs & Over 98456 Given 06/27/2012 Pneumonia Vaccine [id number] Vital Signs Date Vital Result Comment 05/29/2019 12:24pm Height 69 inches 5'9" Weight 142.00 lb Heart Rate 59 /min BP Systolic Sitting 140 mmHg BP Diastolic Sitting 78 mmHg Body Temperature 98.8 F O2 % BldC Oximetry 98 % BMI (Body Mass Index) 21.0 kg/m2 05/09/2019 2:13pm Height 69 inches 5'9" Weight 144.00 lb Heart Rate 60 /min BP Systolic 129 mmHg BP Diastolic 78 mmHg O2 % BldC Oximetry 98 % BMI (Body Mass Index) 21.3 kg/m2 Results Test Date Facility Test Result H/L Range Note Protime W/ Inr 05/03/2019 [facility] Prothrombin Time 35.0 Inr 2.9 Protime W/ Inr 04/04/2019 [facility] Prothrombin Time 31.4 Inr 2.6 Protime W/ Inr 03/07/2019 [facility] Prothrombin Time 32.9 Inr 2.7 Inr/Protime 02/22/2019 [facility] Inr 2.11 High 0.82-1.[address] [place] [address] [phone] Lipid Profile 02/22/2019 [facility] Triglycerides 212 2, 3 (Trig/Chol/HDL) [address] mg/[place] [address] [phone] Cholesterol 197 mg/dL 4 HDL Cholesterol 45.8 mg/dL 5 LDL Cholesterol 109 mg/dL 6 Laboratory test 02/22/2019 [facility] Uric Acid 8.5 mg/dL High 4.4-7.6 [address] [place] [address] [phone] TSH (Thyroid Stim Horm) 3.54 mcIU/mL Normal 0.34-5.60 8 Protime W/ Inr 01/26/2019 [facility] Prothrombin Time 28.7 Inr 2.4 Protime W/ Inr 12/26/2018 [facility] Prothrombin Time 29.4 Inr 2.5 1 Standard intensity warfarin therapeutic range: 2.0-3.0 High intensity warfarin therapeutic range: 2.5-3.5 2 FASTING 10 HOUR 3 Desirable: <150 Borderline High: 150-199 High: 200-499 Very High: >500 4 Desirable: <200 Borderline High: 200-239 High: >239 5 Low: <40 Desirable: 40-60 High: >60 6 Desirable: <100 Near Optimal: 100-129 Borderline High: 130-159 High: 160-189 Very High: >189 7 FASTING 10 HOUR 8 FASTING 10 HOUR Procedures Date Code Description Status 05/29/2019 26871 Admin Of Inj Completed 05/15/2019 98013 Admin Of Inj Completed 04/04/2019 71437 Admin Of Inj Completed 01/26/2019 64112 Admin Of Inj Completed 01/03/2014 15797109 Colonoscopy Completed 06/13/2012 [id number] Bone Mineral Density Test Completed Medical Devices Description No Information Available Encounters Type Date Location Provider Dx Diagnosis Office Visit 05/09/2019 [facility] Nephrology Wilber Espinoza I12.9 Hypertensive chronic 2:00p MD Yoshi kidney disease w stg 1-4/unsp [facility] kdny N18.3 Chronic kidney disease, stage 3 (moderate) Z79.01 watermaster (current) use of anticoagulants Z94.0 Kidney transplant status I10 Essential (primary) hypertension Office Visit 02/26/2019 [facility] Jackie, M65.4 Radial styloid 2:00p Orthopedics at tenosynovitis [Keith] Office Visit 02/20/2019 [facility] Internal Elvira Hasy, Z00.00 [facility]cn[facility] exam w/o abnormal findings E78.1 Pure hyperglyceridemia Z12.83 Encounter for screening for malignant neoplasm of skin M25.532 Pain in left wrist E79.0 Hyperuricemia w/o signs of inflam arthrit and tophaceous dis I10 Essential (primary) hypertension Z94.0 Kidney transplant status Z79.01 [facility] (current) use of anticoagulants Office Visit 01/31/2019 1:00p [facility] Internal An Coates, J06.9 Acute upper Medicine - [facility] respiratory infection, unspecified Assessments Date Code Description Provider 05/29/2019 I89.0 Lymphedema, not elsewhere classified Elvira Hays M.D. 05/15/2019 D51.9 Vitamin B12 deficiency anemia, unspecified Nurse Visit A 05/09/2019 I12.9 Hypertensive chronic kidney disease with Wilber Belle MD stage 1 through stage 4 chronic kidney disease, or unspecified chronic kidney disease 05/09/2019 N18.3 Chronic kidney disease, stage 3 (moderate) Wilber Belle MD 05/09/2019 Z79.01 [facility] (current) use of anticoagulants Wilber Belle MD 05/09/2019 Z94.0 Kidney transplant status Wilber Belle MD 05/09/2019 I10 Essential (primary) hypertension Wilber Belle MD 05/03/2019 I82.501 Chronic embolism and thrombosis of Nurse Visit A unspecified deep veins of right lower extremity 05/03/2019 Z79.01 watermaster (current) use of anticoagulants Nurse Visit A 04/04/2019 I82.501 Chronic embolism and thrombosis of Nurse Visit A unspecified deep veins of right lower extremity 04/04/2019 Z79.01 [facility] (current) use of anticoagulants Nurse Visit A 04/04/2019 D51.9 Vitamin B12 deficiency anemia, unspecified Nurse Visit A 03/07/2019 Z79.01 [facility] (current) use of anticoagulants Nurse Visit A 03/07/2019 I82.501 Chronic embolism and thombos unsp deep veins Nurse Visit A of r low extrem 02/26/2019 M65.4 Radial styloid tenosynovitis [de Quervain] Lg Mejia MD 02/20/2019 Z00.00 Encounter for general adult medical Elvira Hays M.D. examination without abno 02/20/2019 E78.1 Pure hyperglyceridemia Elvira Hays M.D. 02/20/2019 Z12.83 Encounter for screening for malignant Elvira Hays M.D. neoplasm of skin 02/20/2019 M25.532 Pain in left wrist Elvira Hays M.D. 02/20/2019 E79.0 Hyperuricemia without signs of inflammatory Elvira Hays M.D. arthritis and to 02/20/2019 I10 Essential (primary) hypertension Elvira Hays M.D. 02/20/2019 Z94.0 Kidney transplant status Elvira Hays M.D. 02/20/2019 Z79.01 watermaster (current) use of anticoagulants Elvira Hays M.D. 01/31/2019 J06.9 Acute upper respiratory infection, An Coates MD unspecified 01/26/2019 D51.9 Vitamin B12 deficiency anemia, unspecified Nurse Visit A 01/26/2019 I82.501 Chronic embolism and thombos unsp deep veins Nurse Visit A of christiano low extrem 01/26/2019 Z79.01 [facility] (current) use of anticoagulants Nurse Visit A 12/26/2018 Z79.01 watermaster (current) use of anticoagulants Nurse Visit A 12/26/2018 I82.501 Chronic embolism and thombos unsp deep veins Nurse Visit A of low extrem Plan of Treatment Future Appointment(s):11/05/2019 2:00 pm - Wilber Belle MD at [facility] Kkwrwlrkxs27/01/2019 - Elvira Hays M.D.I89.0 Lymphedema, not elsewhere classifiedNew Medication:Furosemide 20 mg - 1 by mouth every other dayComments: we discussed leg elevation, lymphedema compresses and rosendo wrapFollow up:1 week Functional Status Description No Information Available Mental Status Description No Information Available Referrals Refer to Reason for Referral Status Appt Date Matheus Montelongo MD Sent 04/09/[address] [place] [address], [place] [address] [phone] Lg Mejia MD Sent 02/26/2019 [place] [address] [phone]
--- OUTSIDE RECORDS SUMMARY | 2019-06-04 13:56 | XMS REPORT | Continuity of Care Document ---
:1960 External Reference #:[id number] Author Name Elvira Hays M.D. 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 Medicine Problems Active Problems Provider Date Osteoporosis [...] Eula Hays Tablets Cyanocobalamin inject one 1units [facility] 06/28/2016 milliliters (cc) Eula Hays 1000mcg/ML Solution intramuscularly weekly X 1 month then once a month Compression Stockings X large size 1Pair 453.50 Elvira 11/07/2014 Eula Hays Misc Prednisone 1 po qd 30tabs Unknown 10mg Tablets Clonidine HCL Take 1 Tablet By 60tabs Elvira 0.1mg Mouth Twice Daily Eual Hays Tablets Cyclosporine 1 cap by mouth twice 60caps Unknown 100mg a day Capsules Atenolol Take 1 Tablet By 90tabs Elvira 50mg Tablets Mouth Once Daily Eula Hays History Medications Azithromycin take 2 tablets 6tabs J06.9 An Caotes MD 01/31/2019 - 250mg today; then one [...] CPT Code Status Date Vaccine Lot # [id number] Given 07/10/2018 Influenza Virus Vaccine, Quadrivalent, Split, [id number] Preservative Free 22265 Given 06/09/2016 Influ Virus Vaccine, Quadrivalent, Split Virus, [place] [id number] [address] Given 07/16/2015 Influenza Virus Vaccine, Quadrivalent, Split, [id number] Preservative Free 86074 Given 08/08/2014 Pneumococcal Conjugate Vaccine 13 Valent For [id number] Intramuscular Use 37856 Given 08/08/2014 Flu Vaccine Split Virus Preservative Free For [id number] Indiv 3Yr Older 13167 Given 10/31/2013 Tdap - Tetanus/Diptheria/Acellular Pertussis [id number] 41382 Given 07/01/2013 Influenza Virus 3Yrs & Over 18057 Given 06/27/2012 Pneumonia Vaccine [id number] Vital Signs Date Vital Result Comment 05/29/2019 [...] H/L Range Note Protime W/ Inr 05/03/2019 [facility] Prothrombin Time 35.0 Inr 2.9 Protime W/ Inr 04/04/2019 [facility] Prothrombin Time 31.4 Inr 2.6 Protime W/ Inr 03/07/2019 [facility] Prothrombin Time 32.9 Inr 2.7 Inr/Protime 02/22/2019 [facility] Inr 2.11 High 0.82-1.[address] [place] [address] [phone] Lipid Profile 02/22/2019 [facility] Triglycerides 212 2, 3 (Trig/Chol/HDL) [address] mg/[place] [address] [phone] Cholesterol 197 mg/dL 4 HDL Cholesterol 45.8 mg/dL 5 LDL Cholesterol 109 mg/dL 6 Laboratory test 02/22/2019 [facility] Uric Acid 8.5 mg/dL High 4.4-7.6 [address] [place] [address] [phone] TSH (Thyroid Stim Horm) 3.54 mcIU/mL Normal 0.34-5.60 8 Protime W/ Inr 01/26/2019 [facility] House Prothrombin Time 28.7 Inr 2.4 Protime W/ Inr 12/26/2018 Transmission [facility] In House Prothrombin Time 29.4 Inr 2.5 [...] HOUR Procedures Date Code Description Status 05/29/2019 64824 Admin Of Inj Completed 05/15/2019 77543 Admin Of Inj Completed 04/04/2019 61946 Admin Of Inj Completed 01/26/2019 21400 Admin Of Inj Completed 01/03/2014 63505478 Colonoscopy Completed 06/13/2012 [id number] Bone Mineral Density Test Completed Medical Devices Description No Information Available Encounters Type Date Location Provider Dx Diagnosis Office Visit 05/09/2019 [facility] Nephrology Wilber Espinoza I12.9 Hypertensive chronic 2:00p MD Yoshi kidney disease w stg 1-4/unsp [facility] kdny N18.3 Chronic kidney disease, stage 3 (moderate) 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 Z94.0 Kidney transplant status I10 Essential (primary) hypertension Office Visit 02/26/2019 [facility] Jackie, M65.4 Radial styloid 2:00p Orthopedics at tenosynovitis [Keith] Office Visit 02/20/2019 [facility] Internal Elvira Hays, Z00.00 Encntr [facility] exam w/o abnormal findings E78.1 Pure hyperglyceridemia Z12.83 Encounter for screening for malignant neoplasm of skin M25.532 Pain in left wrist E79.0 Hyperuricemia w/o signs of inflam arthrit and tophaceous dis I10 Essential (primary) hypertension Z94.0 Kidney transplant status Z79.01 skilled nursing (current) use of anticoagulants Office Visit 01/31/2019 1:00p [facility] Internal An Coates, J06.9 Acute upper [...] 3 (moderate) Wilber Belle MD 05/09/2019 Z79.01 skilled nursing (current) use of anticoagulants Wilber Belle MD 05/09/2019 Z94.0 Kidney transplant status Wilber Belle MD 05/09/2019 I10 Essential (primary) hypertension Wilber Belle MD 05/03/2019 I82.501 Chronic embolism and thrombosis of Nurse Visit A unspecified deep veins of right lower extremity 05/03/2019 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 Nurse Visit A 12/26/2018 I82.501 Chronic embolism and thombos unsp deep veins Nurse Visit A of low extrem Plan of Treatment Future Appointment(s):11/05/2019 2:00 pm - Wilber Belle MD at [facility] Lzmqlypsbg11/01/2019 - Elvira Hays M.D.I89.0 Lymphedema, not elsewhere classifiedNew Medication:Furosemide 20 mg - 1 by mouth every other dayComments: we discussed leg elevation, lymphedema compresses and rosendo wrapFollow up:1 week Functional Status Description No Information Available Mental Status Description No Information Available Referrals Refer to Reason for Referral Status Appt Date Matheus Montelongo MD Sent 04/09/[address] [place] [address], [place] [address] [phone] Lg Mejia MD Sent 02/26/[address] [place] [address] [phone]
--- OUTSIDE RECORDS SUMMARY | 2019-06-04 13:56 | XMS REPORT | Continuity of Care Document ---
:1960 External Reference #:[id number] Author Name Wilber Belle MD (transmitted by agent of provider Ceci Boyle) Address [address] [place] [id number] Care Team Providers Name Role Phone Reji Gonzalez MD - Nephrology Care Team Information Magnetic Locater Elvira Hays MD - Internal Care Team Information Magnetic Locater Medicine Problems Active Problems Provider Date Osteoporosis [...] Unknown Never Smoked Cigarettes Smoking Status Reviewed: 05/09/19 Never Smoked Cigarettes ETOH Use 08/07/2013 Denies alcohol use Tobacco Use Start: Unknown Patient has never smoked Recreational Drug Use Denies Drug Use Exercise Type/Frequency Exercises sporadically Allergies, Adverse Reactions, Alerts Description No Known Drug Allergies Medications Active Medications SIG Qnty Indications Ordering Date Provider Imuran take 1 tab by mouth 90tabs Unknown 04/29/2019 50mg Tablets once daily Procardia XL 2 tab by mouth every 60tabs Kim Prince, 12/26/2018 60mg day MD Tablets ER 24HR Warfarin Sodium take as directed 45tabs [facility] 03/14/2017 5mg Eula Hays Tablets Cyanocobalamin inject one 1units [facility] 06/28/2016 milliliters (cc) Eula Hays 1000mcg/ML Solution intramuscularly weekly X 1 month then once a month Compression Stockings X large size 1Pair 453.50 [facility] 11/07/2014 Eula Hays Misc Prednisone 1 po [...] Qnty Indications Ordering Provider Date B-12 Injection Nurse Visit A 04/04/2019 Injection [...] CPT Code Status Date Vaccine Lot # [id number] Given 07/10/2018 Influenza Virus Vaccine, Quadrivalent, Split, [id number] Preservative Free 45848 Given 06/09/2016 Influ Virus Vaccine, Quadrivalent, Split Virus, [place] [id number] [address] Given 07/16/2015 Influenza Virus Vaccine, Quadrivalent, Split, [id number] Preservative Free 61136 Given 08/08/2014 Pneumococcal Conjugate Vaccine 13 Valent For [id number] Intramuscular Use 78305 Given 08/08/2014 Flu Vaccine Split Virus Preservative Free For [id number] Indiv 3Yr Older 72543 Given 10/31/2013 Tdap - Tetanus/Diptheria/Acellular Pertussis [id number] 72328 Given 07/01/2013 Influenza Virus 3Yrs & Over 32858 Given 06/27/2012 Pneumonia Vaccine [id number] Vital Signs Date Vital Result Comment 05/09/2019 2:13pm Height 69 inches 5'9" Weight 144.00 lb Heart Rate 60 /min BP Systolic 129 mmHg BP Diastolic 78 mmHg O2 % BldC Oximetry 98 % BMI (Body Mass Index) 21.3 kg/m2 02/26/2019 2:24pm Height 69 inches 5'9" Weight 143.00 lb BP Systolic 117 mmHg BP Diastolic 66 mmHg Respiratory Rate 16 /min Pain Level 3 BMI (Body Mass Index) 21.1 kg/m2 Results Test Date Facility Test Result H/L Range Note Protime W/ Inr 05/03/2019 [facility] Prothrombin Time 35.0 Inr 2.9 Protime W/ Inr 04/04/2019 [facility] Prothrombin Time 31.4 Inr 2.6 Protime W/ Inr 03/07/2019 [facility] Prothrombin Time 32.9 Inr 2.7 Laboratory test 02/22/2019 [facility] Uric Acid 8.5 mg/dL High 4.4-7.6 1, [address] [place] [address] [phone] TSH (Thyroid Stim Horm) 3.54 mcIU/mL Normal 0.34-5.60 3 Lipid Profile 02/22/2019 [facility] Triglycerides 212 mg/dL 4 (Trig/Chol/HDL) [address] [place] [address] [phone] Cholesterol 197 mg/dL 5 HDL Cholesterol 45.8 mg/dL 6 LDL Cholesterol 109 mg/dL 7 Inr/Protime 02/22/2019 [facility] Inr 2.11 High 0.82-1.[address] [place] [address] [phone] Protime W/ Inr 01/26/2019 [facility] Prothrombin Time 28.7 Inr 2.4 Protime W/ Inr 12/26/2018 [facility] Prothrombin Time 29.4 Inr 2.5 Protime W/ Inr 11/27/2018 [facility] Prothrombin Time 27.8 Inr 2.3 Laboratory test 11/10/2018 [facility] Vitamin B12 721 pg/mL Normal 180-[address] [place] [address] [phone] Comp Metabolic 11/10/2018 [facility] Sodium 142 mmol/L Normal 135-[address] [place] [address] [phone] Potassium 4.1 mmol/L Normal 3.5-5.0 Co2 Carbon Dioxide 20 mmol/L Low 22-32 Glucose 95 mg/dL Normal 70-100 Blood Urea Nitrogen 35 mg/dL High 6-24 Creatinine 1.92 mg/dL High 0.67-1.17 One Over Creatinine 0.52 BUN/Creatinine Ratio 18.2 Normal 8-20 Calcium 8.4 mg/dL Low 8.6-10.3 Total Protein 6.1 g/dL Low 6.4-8.9 Albumin 3.7 g/dL Normal 3.2-5.2 Globulin 2.4 g/dL Normal 2-4 Albumin/Globulin Ratio 1.5 Normal 1-3 Total Bilirubin 0.50 mg/dL Normal 0.2-1.0 Alkaline Phosphatase 57 U/L Normal 34-104 Alt 7 U/L Normal 7-52 Ast 8 U/L Low 13-39 Egfr Non- 36.4 >60 Egfr 44.1 >60 10 Chloride 115 mmol/L High 101-111 Anion Gap 7 mmol/L Normal 2-11 Lipid Profile 11/10/2018 [facility] Triglycerides 253 mg/dL 11 (Trig/Chol/HDL) [address] [place] [address] [phone] Cholesterol 203 mg/dL 12 HDL Cholesterol 46.0 mg/dL 13 LDL Cholesterol 106 mg/dL 14 Liver 11/10/2018 [facility] Direct 0.10 Normal 0.03-0.18 Function 101 Bilirubin mg/[place] [address] [phone] Indirect Bilirubin 0.4 mg/dL Normal 0.3-1.0 Laboratory test 11/10/2018 [facility] Phosphorus 2.8 mg/dL Normal 2.5-5.[address] [place] [address] [phone] Magnesium 1.9 mg/dL Normal 1.9-2.7 CBC Auto 11/10/2018 [facility] White Blood 6.5 10^3/uL Normal 3.5-10.[address] [place] [address] [phone] Red Blood Count 2.87 10^6/uL Low 4.18-5.48 Hemoglobin 10.5 g/dL Low 14.0-18.0 Hematocrit 31 % Low 36-46 Mean Corpuscular Volume 108 fL High 80-94 15 Mean Corpuscular Hemoglobin 37 pg High 27-31 Mean Corpuscular HGB Conc 34 g/dL Normal 31-36 Red Cell Distribution Width 16 % High 10.5-15 Platelet Count 209 10^3/uL Normal 150-450 Mean Platelet Volume 8.4 fL Normal 7.4-10.4 Abs Neutrophils 3.8 10^3/uL Normal 1.5-7.7 Abs Lymphocytes 1.8 10^3/uL Normal 1.0-4.8 Abs Monocytes 0.87 10^3/uL High 0-0.8 Abs Eosinophils 0.1 10^3/uL Normal 0-0.6 Abs Basophils 0 10^3/uL Normal 0-0.2 Abs Nucleated RBC 0 10^3/uL Granulocyte % 58.1 % Lymphocyte % 27.8 % Monocyte % 12.2 % Eosinophil % 1.4 % Basophil % 0.5 % Nucleated Red Blood Cells % 0.1 Cell Morphology 11/10/2018 [facility] Macrocytosis 1+ [address] [place] [address] [phone] Anisocytosis 1+ Laboratory test 11/10/2018 [facility] Cyclosporine [place] 113 16 finding [address] [place] [address] [phone] 1 FASTING 10 HOUR 2 FASTING 10 HOUR 3 FASTING 10 HOUR 4 Desirable: <150 Borderline High: 150-199 High: 200-499 Very High: >500 5 Desirable: <200 Borderline High: 200-239 High: >239 6 Low: <40 Desirable: 40-60 High: >60 7 Desirable: <100 Near Optimal: 100-129 Borderline High: 130-159 High: 160-189 Very High: >189 8 Standard intensity warfarin therapeutic range: 2.0-3.0 High intensity warfarin therapeutic range: 2.5-3.5 9 Normal Range 180 to 914 Indeterminate Range 145 to 180 Deficient Range <145 10 Because ethnic data is not always readily available, this report includes an eGFR for both -Americans and non- Americans. The National Kidney Disease Education Program (NKDEP) does not endorse the use of the MDRD equation for patients that are not between the ages of 18 and 70, are , have extremes of body size, muscle mass, or nutritional status, or are non- or non-. According to the National Kidney Foundation, irrespective of diagnosis, the stage of the disease is based on the level of kidney function: Stage Description GFR(mL/min/1.73 m(2)) 1 Kidney damage with normal or decreased GFR 90 2 Kidney damage with mild decrease in GFR 60-89 3 Moderate decrease in GFR 30-59 4 Severe decrease in GFR 15-29 5 Kidney failure <15 (or dialysis) 11 Desirable: <150 Borderline High: 150-199 High: 200-499 Very High: >500 12 Desirable: <200 Borderline High: 200-239 High: >239 13 Low: <40 Desirable: 40-60 High: >60 14 Desirable: <100 Near Optimal: 100-129 Borderline High: 130-159 High: 160-189 Very High: >189 15 Adult MCV>105,Warmed at 37 for 30 min, change minimal 16 Reference Range (ng/mL) Therapeutic: ng/mL Renal Transplant: 100 - 250 ng/mL Liver Transplant: 100 - 400 ng/mL Cardiac Transplant: 100 - 400 ng/mL Bone Marrow: 200 - 300 ng/mL Testing Performed at: [facility] Department of Pathology [address] [place] [address] Reference Range (ng/mL) Therapeutic: ng/mL Renal Transplant: 100 - 250 ng/mL Liver Transplant: 100 - 400 ng/mL Cardiac Transplant: 100 - 400 ng/mL Bone Marrow: 200 - 300 ng/mL Testing Performed at: [facility] Department of Pathology [address] [place] [address] Procedures Date Code Description Status 04/04/2019 92581 Admin Of Inj Completed 01/26/2019 14885 Admin Of Inj Completed 11/27/2018 67445 Admin Of Inj Completed 01/03/2014 [id number] Colonoscopy Completed 06/13/2012 [id number] Bone Mineral Density Test Completed Medical Devices Description No Information Available Encounters Type Date Location Provider Dx Diagnosis Office Visit 02/26/2019 [facility] Lg Mejia, M65.4 Radial styloid 2:00p [facility] tenosynovitis [de Quervain] Office Visit 02/20/2019 [facility] Internal Elviraaron Hays, Z00.00 [facility] exam w/o abnormal findings E78.1 Pure hyperglyceridemia Z12.83 Encounter for screening for malignant neoplasm of skin M25.532 Pain in left wrist E79.0 Hyperuricemia w/o signs of inflam arthrit and tophaceous dis I10 Essential (primary) hypertension Z94.0 Kidney transplant status 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 Office Visit 01/31/2019 1:00p [facility] Internal An Jaxon, J06.9 [facility], unspecified Assessments Date Code Description Provider 05/09/2019 Z94.0 Kidney transplant status Wilber Belle MD 05/09/2019 Z79.01 [facility] (current) use of anticoagulants Wilber Belle MD 05/09/2019 I10 Essential (primary) hypertension Wilber Belle MD 05/09/2019 N18.3 Chronic kidney disease, stage 3 (moderate) Wilber Belle MD 05/03/2019 I82.501 Chronic embolism and thrombosis of Nurse Visit A unspecified deep veins of right lower extremity 05/03/2019 Z79.01 [facility] (current) use of anticoagulants Nurse Visit A 04/04/2019 I82.501 Chronic embolism and thrombosis of Nurse Visit A unspecified deep veins of right lower extremity 04/04/2019 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 Nurse Visit A 12/26/2018 Z79.01 [facility] (current) use of anticoagulants Nurse Visit A 12/26/2018 I82.501 Chronic embolism and thombos unsp deep veins Nurse Visit A of r low extrem 11/27/2018 E53.8 Deficiency of other specified B group Nurse Visit A vitamins 11/27/2018 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 Nurse Visit A 11/27/2018 I82.501 Chronic embolism and thrombosis of Nurse Visit A unspecified deep veins of Plan of Treatment Future Appointment(s):11/05/2019 2:00 pm - Wilber Belle MD at [facility] Vwwistwkrb64/11/2019 - Wilber Belle MDZ94.0 Kidney transplant statusNew Labs:Iron & Iron Binding Capacity, Ordered: 05/09/19Ferritin, Ordered: 05/09Follow up:FU in 6 moZ79.01 intermediate school teacher (current) use of idrtzuhyjfoslgG14 Essential (primary) wsrqzupoeicsO77.3 Chronic kidney disease, stage 3 (moderate) Functional Status Description No Information Available Mental Status Description No Information Available Referrals Refer to Reason for Referral Status Appt Date Matheus Montelongo MD Sent 04/09/[address] [place] [address], [place] [address] [phone] Lg Mejia MD Sent 02/26/2019 [address] [place] [address] [phone]
[2019-06-04 14:07] VITALS: BP 132/82
--- NOTE | 2019-06-04 14:14 | UC ---
Lower Extremity/Ankle HPI - HPI Summary HPI Summary: 58 yo male presents with RIGHT ankle pain. He tells me that he has a hx of DVT b /l lower legs and renal transplant. He has chronic lower leg edema b/l that is worse if he doesn't elevate his legs or if he is doing a lot of walking. Over the last 10 days has noticed anterior right ankle pain that is worse with ambulation and walking. He has been wearing a CAM boot intermittently with great relief when he wears it, but as soon as he removes the boot his pain returns. He has also been using compression stockings with no change. Denies injury, numbness, tingling, SOB, chest pain. - History of Current Complaint Chief Complaint: UCLowerExtremity Stated Complaint: LEG PAIN AND SWELLING Time Seen by Provider: 06/04/19 14:13 Hx Obtained From: Patient Onset/Duration: Gradual Onset Severity Initially: Moderate Severity Currently: Moderate Pain Intensity: 6 Pain Scale Used: 0-10 Numeric - Allergies/Home Medications Allergies/Adverse Reactions: Allergies Allergy/AdvReac Type Severity Reaction Status Date / Time lactose Allergy Intermediate Diarrhea Verified 06/04/19 14:08 PMH/Surg Hx/FS Hx/Imm Hx - Additional Past Medical History Additional PMH: Renal transplant B/L lower leg DVTs Cardiovascular History: Hypertension - Surgical History Surgical History: Yes Surgery Procedure, Year, and Place: 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 WDWN. No pain distress. SKIN: No rashes, sores, lesions, or open wounds. CHEST: No accessory muscle use. Breathing comfortably and in no distress. CV: Pulses intact PT and DP. Cap refill <2seconds. Pitting edema 3+ b/l. MSK: RIGHT ANKLE: Mild TTP anterior aspect. Pain here with dorsiflexion. NTTP lateral/medial malleolus. Strength 5/5. Negative talar tilt. No increased laxity. Negative [place] test. NEURO: Alert. Sensations intact and symmetric B/L LEs PSYCH: Age appropriate behavior. Triage Information Reviewed: Yes Vital Signs: Initial Vital Signs Temp 98.1 F 06/04/19 14:03 Pulse 58 06/04/19 14:03 Resp 18 06/04/19 14:03 BP 132/82 06/04/19 14:03 Pulse Ox 100 06/04/19 14:03 Vital Signs Reviewed: Yes Diagnostics - Radiology CT right ankle Radiology Interpretation Completed By: Radiologist Summary of Radiographic Findings: IMPRESSION: DIFFUSE SOFT TISSUE SWELLING CENTERED IN THE SUBCUTANEOUS TISSUES MOST CONSISTENT WITH CELLULITIS. NO EVIDENCE FOR OSTEOMYELITIS. IF THERE IS CONCERN FOR OSTEOMYELITIS OR FASCIITIS CONSIDER MR IMAGING FOR FURTHER EVALUATION. Lower Extremity Course/Dx - Course Course Of Treatment: His symptoms are most in line with tendinitis of lower leg/ankle musculature. I discussed the case with Dr. Royal and he recommends CT of the area and close f/ u with PCP. CT as above. I suspect tendinitis of the area. I recommended he wear the walking boot for at least 1 week as much as possible. He has an appointment with Orthopedics tomorrow for his wrist, I advised him to discuss his ankle pain with Ortho for further eval and treatment. Pt voiced understanding and agrees with the plan - Differential Dx/Diagnosis Provider Diagnosis: Ankle tendinitis Discharge ED - Sign-Out/Discharge Documenting (check all that apply): Patient Departure All imaging exams completed and their final reports reviewed: Yes - Discharge Plan Condition: Stable Disposition: HOME Patient Education Materials: Tendinitis (ED) Referrals: Elvira Hays MD [Primary Care Provider] - Additional Instructions: If you develop a fever, shortness of breath, chest pain, new or worsening symptoms - please call your PCP or go to the ED immediately. Your CT scan of your ankle/leg was normal today 1) Use your walking boot as much as possible for at least 1 week 2) Please keep your appointment tomorrow with your Orthopedic doctor and ask them about your ankle pain - Billing Disposition and Condition Condition: STABLE Disposition: Home
== END 2019-06-04 15:40 | disposition home or self-care (01) ==
LOC: UCEAST 13:50
DX: M77.51 Other enthesopathy of right foot and ankle (principal); Z86.718 Personal history of other venous thrombosis and embolism; Z94.0 Kidney transplant status
CPT/HCPCS: 99211; G0463

== ENCOUNTER 2019-07-30 10:42 | Observation (INO) | payer OTHER ==
--- NOTE | 2019-07-30 11:09 | ED ---
HPI Febrile Illness - HPI Summary HPI Summary: Patient is a 58 y/o M presenting to the ED via EMS for a chief complaint of fever. [place] [facility] refused to transport the patient to [facility] due to weather conditions. Patient was found to have a fever, taken twice orally, by his home nurse on 07/30/19. Patient reports decreased fluid intake, bilateral LE weakness, generalized weakness, bilateral eye edema, and bilateral foot edema. He states he cannot walk due to the foot edema. Patient denies any chills , diaphoresis, erythema of eyes, sore throat, CP, SOB, cough, abdominal pain, N/ V, diarrhea, dysuria, hematuria, urinary frequency, urinary burning, myalgia, neck stiffness, rash, wounds, or dizziness. Patient denies any aggravating or alleviating factors. On 07/23/19, patient last received a chemotherapy treatment at [facility] and is due for his next treatment on 08/03/19 for a PMHx of multiple myeloma. He received 5 treatments for multiple myeloma at the bone marrow transplant unit at [facility] and was discharged on 07/24/19. At that time, patient had fluid drained from his abdomen. Patient sees Dr. Jay at [facility], but does not see an oncologist in [place]. PMHx is also significant for DM. Patient takes Prednisone, blood thinners, and medications for a PSHx of kidney transplant. Patient lives in [place] with his and son. - History of Current Complaint Chief Complaint: EDFever Time Seen by Provider: 07/30/19 10:44 Hx Obtained From: Patient Onset/Duration: Atraumatic, Still Present Timing: Constant Initial Severity: Mild Current Severity: Mild Pain Intensity: 0 Pain Scale Used: 0-10 Numeric Aggravating Factors: Nothing Alleviating Factors: Nothing Associated Signs and Symptoms: Swelling - Bilateral eye, bilateral feet, Weakness - Generalized and bilateral LE - Allergy/Home Medications Allergies/Adverse Reactions: Allergies Allergy/AdvReac Type Severity Reaction Status Date / Time lactose Allergy Intermediate Diarrhea Verified 06/04/19 14:08 Home Medications: Home Medications Apixaban* [Eliquis*] 5 mg PO BID 07/30/19 [History Confirmed 07/30/19] Metoprolol Tartrate TAB* [Lopressor TAB*] 50 mg PO BID 07/30/19 [History Confirmed 07/30/19] NIFEdipine ER TAB* [Procardia Xl TAB*] 60 mg PO DAILY 07/30/19 [History Confirmed 07/30/19] Omeprazole CAP (NF) [Prilosec CAP* 20 MG] 20 mg PO DAILY 07/30/19 [History Confirmed 07/30/19] Vancomycin ALISON* ORALSYR [Firvanq ALISON* ORALSYR] 2.5 ml PO Q6H 07/30/19 [History Confirmed 07/30/19] metroNIDAZOLE * [Flagyl] 500 mg PO Q6H 07/30/19 [History Confirmed 07/30/19] predniSONE TAB* [Deltasone TAB*] 5 mg PO DAILY 07/30/19 [History Confirmed 07/30] PMH/Surg Hx/FS Hx/Imm Hx Previously Healthy: Yes Endocrine/Hematology History: Denies: Hx Diabetes, Hx Systemic Lupus Erythematosus, Hx Thyroid Disease Cardiovascular History: Reports: Hx Deep Vein Thrombosis, Hx Hypertension - ON MEDS Denies: Hx Congestive Heart Failure, Hx Pacemaker/ICD Respiratory History: Denies: Hx Asthma, Hx Chronic Obstructive Pulmonary Disease (COPD) GI History: Reports: Other GI Disorders - denies abnormal s/s Denies: Hx Ulcer History: Reports: Hx Dialysis - not current in 1991 prior to transplant, Hx Renal Disease, Other Problems/Disorders - kidney transplant pt states other kidney is not functioning,nephrectomy Musculoskeletal History: Reports: Other Musculoskeletal History - right thigh pain Denies: Hx Rheumatoid Arthritis, Hx Osteoporosis Sensory History: Denies: Hx Legally Blind, Hx Deafness, Hx Hearing Aid Opthamlomology History: Denies: Hx Legally Blind EENT History: Denies: Hx Deafness Psychiatric History: Denies: Hx Panic Disorder - Cancer History Cancer Type, Location and Year: Multiple myeloma Date and Location of Last Treatment: 07/23/19 Hx Chemotherapy: Yes - Surgical History Surgical History: Yes Surgery Procedure, Year, and Place: 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, kidney transplant 1992 Infectious Disease History: No Infectious Disease History: Denies: Hx Hepatitis, Hx Human Immunodeficiency Virus (HIV), Traveled Outside the [place] in Last 30 Days - Family History Known Family History: Negative: Hypertension - Social History Occupation: Employed Full-time Lives: With Family Alcohol Use: None Hx Substance Use: No Substance Use Type: Reports: None Hx Tobacco Use: No Smoking Status (MU): Never Smoked Tobacco Review of Systems Positive: Fever - In vitals, 101.4 F, Other - Positive decreased fluid intake. Negative: Chills, Skin Diaphoresis Negative: Erythema Negative: Sore Throat Negative: Chest Pain Negative: Shortness Of Breath, Cough Negative: Abdominal Pain, Vomiting, Diarrhea, Nausea Negative: burning - Urinary, dysuria, frequency - Urinary, hematuria Positive: Edema - Bilateral eyes and bilateral feet, Other - Negative neck stiffness. Negative: Myalgia Positive: Other - Negative wounds. Negative: Rash Neurological: Other - Negative dizziness Positive: Weakness - Generalized and bilateral LE All Other Systems Reviewed And Are Negative: Yes Physical Exam - Summary Physical Exam Summary: Constitutional: Well-developed, Well-nourished, Alert. (-) Distressed Skin: Warm, Dry HENT: Normocephalic; Atraumatic. Chemosis bilaterally. Eyes: Conjunctiva normal Neck: Musculoskeletal ROM normal neck. (-) JVD, (-) Stridor, (-) Tracheal deviation Cardio: Rhythm regular, rate normal, Heart sounds normal; Intact distal pulses; The pedal pulses are 2+ and symmetric. Radial pulses are 2+ and symmetric. (-) Murmur Pulmonary/Chest wall: Effort normal. (-) Respiratory distress, (-) Wheezes, (-) Rales Abd: Soft, (-) tenderness, (-) Distension, (-) Guarding, (-) Rebound Musculoskeletal: Bilateral foot edema Lymph: (-) Cervical adenopathy Neuro: Alert, Oriented x3 Psych: Mood and affect Normal Triage Information Reviewed: Yes Vital Signs On Initial Exam: Initial Vitals Temp Pulse Resp BP Pulse Ox 101.4 F 96 16 151/77 97 07/30/19 10:47 07/30/19 10:47 07/30/19 10:47 07/30/19 10:47 07/30/19 10:47 Vital Signs Reviewed: Yes Procedures - Procedure Summary Procedure Summary: Informed consent for bedside paracentesis was obtained, with risks including bleeding and infection of bowel perforation explained. I performed a bedside ultrasound, there was ascites present however loops of bowel were very close to the peritoneum, and a suitable pocket of ascitic fluid was not identified. I felt the procedure to rescue to proceed at this point. - Sedation Patient Received Moderate/Deep Sedation with Procedure: No Diagnostics - Vital Signs Vital Signs Temp Pulse Resp BP Pulse Ox 07/30/19 10:47 101.4 F 96 16 151/77 97 - Laboratory Result Diagrams: 07/30/19 11:23 07/30/19 11:23 Lab Statement: Any lab studies that have been ordered have been reviewed, and results considered in the medical decision making process. - Radiology Chest X-ray Radiology Interpretation Completed By: Radiologist Summary of Radiographic Findings: Chest X-ray IMPRESSION: SMALL LEFT PLEURAL EFFUSION. Reviewed by Dr. Menendez. Course/Dx - Course Course Of Treatment: Patient is a 58 y/o M presenting to the ED via EMS for a chief complaint of fever. [facility] refused to transport the patient to [facility] due to weather conditions. Patient was found to have a fever, taken twice orally, by his home nurse on 07/30/19. Patient reports decreased fluid intake, bilateral LE weakness, generalized weakness, bilateral eye edema, and bilateral foot edema. He states he cannot walk due to the foot edema. Patient denies any chills, diaphoresis, erythema of eyes, sore throat, CP, SOB, cough, abdominal pain, N/V, diarrhea, dysuria, hematuria, urinary frequency, urinary burning, myalgia, neck stiffness, rash, wounds, or dizziness. Patient denies any aggravating or alleviating factors. On 07/23/19, patient last received a chemotherapy treatment at [facility] and is due for his next treatment on 08/03/19 for a PMHx of multiple myeloma. He received 5 treatments for multiple myeloma at the bone marrow transplant unit at [facility] and was discharged on 07/24/19. At that time, patient had fluid drained from his abdomen. Patient sees Dr. Jay at [facility], but does not see an oncologist in [place]. PMHx is also significant for DM. Patient takes Prednisone, blood thinners, and medications for a PSHx of kidney transplant. On exam, bilateral foot edema and chemosis bilaterally. In the ED course, patient was given acetaminophen 975 mg PO and Levaquin 500 mg IVPB. Chest X-ray IMPRESSION: SMALL LEFT PLEURAL EFFUSION. Laboratory abnormal findings: RBC 2.97, Hgb 9.6, Hct 29, MCV 96, MCH 32, RDW 20 , Plt count 73, absolute lymphs 0.5, INR 2.01, APTT 39.3, sodium 128, creatinine 2.02, calcium 7.4, troponin I 0.03, total protein 3.8, albumin 2.3, globulin 1.5, urine specific gravity 1.006, urine protein 2+, urine blood 2+, urine squamous epith cells present, and urine bacteria 1+. At 15:47, Dr. Jay at [facility] recommended an ascites fluid analysis, Augmentin by mouth, cultures to be pending, and will see the patient at his appointment on Tuesday. Informed consent for bedside paracentesis was obtained, with risks including bleeding and infection of bowel perforation explained. I performed a bedside ultrasound, there was ascites present however loops of bowel were very close to the peritoneum, and a suitable pocket of ascitic fluid was not identified. I felt the procedure to rescue to proceed at this point. The patient tells me he has had increased weakness and poor appetite, also requesting a wheelchair to go home with, I'm significantly concerned as the patient is a renal transplant patient. At 19:40, I spoke with Dr. Ramirez who agreed with the plan for admission and interventional radiology paracentesis. Will give Levaquin empirically and talk to the hospitalist. At 19:44, Dr. Son agrees to admit the patient to [facility] with a diagnosis of fever and ascites. Patient will be admitted to [facility] with a diagnosis of fever and ascites. - Diagnoses Provider Diagnoses: Ascites, Fever - Provider Notifications Discussed Care Of Patient With: Bairon Jay MD - At 15:47, Dr. Jay at [facility] recommended an ascites fluid analysis, Augmentin by mouth, cultures to be pending, and will see the patient at his appointment on Tuesday. At 19:40, I spoke with Dr. Ramirez who agreed with the plan for admission and interventional radiology paracentesis. Will give Levaquin empirically and talk to the hospitalist. At 19:44, Dr. Son agrees to admit the patient to [facility] with a diagnosis of fever and ascites. Time Discussed With Above Provider: 15:47 Instructed by Provider To: Admit As Inpatient Discharge ED - Sign-Out/Discharge Documenting (check all that apply): Patient Departure - Admit - Discharge Plan Condition: Stable Disposition: ADMITTED TO [facility] Referrals: Elvira Hays MD [Primary Care Provider] - - Attestation Statements Document Initiated by Scribe: Yes Documenting Scribe: Ashley Goldsmith Provider For Whom Scribe is Documenting (Include Credential): Carl Menendez MD Scribe Attestation: Ashley Aguirre, scribed for Carl Menendez MD on 07/30/19 at 1951. Status of Scribe Document: Ready
[2019-07-30] MEDS ORDERED: Acetaminophen TAB* 325 MG PO ONE (11:44)
[2019-07-30 11:51] LABS: Activated Partial Thrombo Time 39.3 seconds (26.0-38.0); INR 2.01 (0.82-1.09)
[2019-07-30 11:51] LABS: ABS Lymphocytes 0.5 10^3/ul (1.0-4.8); ABS Monocytes 0.2 10^3/ul (0-0.8); ABS Neutrophils 2.8 10^3/ul (1.5-7.7); Eosinophil % 0.1 %; Hematocrit 29 % (42-52); Hemoglobin 9.6 g/dL (14.0-18.0); Lymphocyte % 15.4 %; Mean Corpuscular HGB Conc 34 g/dL (31-36); Mean Corpuscular Hemoglobin 32 pg (27-31); Mean Corpuscular Volume 96 fL (80-94); Red Blood Count 2.97 10^6 /uL (4.18-5.48); Red Cell Distribution Width 20 % (10-15); White Blood Count 3.5 10^3/uL (3.5-10.8)
[2019-07-30 11:55] LABS: ALT 9 U/L (7-52); AST 23 U/L (13-39); Albumin 2.3 g/dL (3.2-5.2); Albumin/Globulin Ratio 1.5 (1-3); Alkaline Phosphatase 94 U/L (34-104); Anion Gap 4 mmol/L (2-11); BUN/Creatinine Ratio 11.9 (8-20); Blood Urea Nitrogen 24 mg/dL (6-24); CO2 Carbon Dioxide 23 mmol/L (22-32); Calcium 7.4 mg/dL (8.6-10.3); Chloride 101 mmol/L (101-111); EGFR African American 41.5 (>60); EGFR Non-African American 34.3 (>60); Globulin 1.5 g/dL (2-4); Glucose 92 mg/dL (70-100); Potassium 3.8 mmol/L (3.5-5.0); Sodium 128 mmol/L (135-145); Total Protein 3.8 g/dL (6.4-8.9)
[2019-07-30 11:59] LABS: Troponin I 0.03 ng/mL (<0.03)
[2019-07-30 12:29] LABS: Mean Platelet Volume 10.3 fL (7.4-10.4); Platelet Count 73 10^3/uL (150-450)
[2019-07-30 13:30] LABS: Influenza A Molecular NEGATIVE (Negative); Influenza B Molecular NEGATIVE (Negative)
[2019-07-30 14:26] LABS: Urine Appearance Cloudy; Urine Bilirubin Negative (Negative); Urine Blood 2+ (Negative); Urine Color Yellow; Urine Glucose Negative (Negative); Urine Ketones Negative (Negative); Urine Nitrite Negative (Negative); Urine Protein 2+(100 mg/dL) (Negative); Urine Specific Gravity 1.006 (1.010-1.030); Urine Urobilinogen Negative (Negative)
[2019-07-30 14:28] LABS: Urine Bacteria 1+ (Absent); Urine Red Blood Cell Trace(0-2/hpf) (Absent); Urine Squamous Epithelial Cell Present (Absent); Urine White Blood Cell Trace(0-5/hpf) (Absent)
[2019-07-30] MEDS ORDERED: Levofloxacin 500 MG IVPREMIX(* 500 MG/100 ML BAG IVPB ONE (19:39)
[2019-07-30] MEDS ORDERED: Furosemide IV* 10 MG/ML VIAL (40 MG) IV ONE (20:30)
[2019-07-30] MEDS: Metoprolol Tartrate TAB* 50 mg PO SCH (22:39)
--- NOTE | 2019-07-30 23:03 | HP ---
CC: Dr. Elvira Hays; Dr. Jay at [facility] * HISTORY AND PHYSICAL: DATE OF ADMISSION: 07/30/19 PRIMARY CARE PROVIDER: Dr. Elvira Hays. OTHER PHYSICIAN: Dr. Jay at [facility]. ATTENDING PHYSICIAN: Dr. Bharathi Son * (dictated by EMELYN Walekr). CHIEF COMPLAINT: Fever. HISTORY OF PRESENT ILLNESS: Mr. Alcazar is a 58-year-old male with past medical history of recently diagnosed multiple myeloma, on chemotherapy x1 round, which was finished 07/23/19 at [facility], recent treatment for C. diff colitis, diabetes mellitus, hypertension, history of DVT, on anticoagulation, who presented to the ER today after his VNS nurse called the ambulance and reported a fever of greater than 101. The patient states that on 07/25/19 he was discharged from [facility] after a 7- week admission for recently diagnosed multiple myeloma, for which he received 1 round of chemotherapy; he is scheduled to go back Tuesday. He has since developed 1 day of fever. He denies subjective fever, chills, sweats, but does complain of night sweats. He denies cough, shortness of breath. He denies abdominal pain, nausea, vomiting, diarrhea. He denies dysuria, frequency, urgency, retention. Again, he was recently treated for C. diff colitis with metronidazole and vancomycin, which were discontinued on 07/26/19. In the ER, the patient received a full workup. A CBC revealed a macrocytic anemia, thrombocytopenia. His anemia appears to be chronic, although it is lower than normal. He has hyponatremia. Creatinine is elevated to 2.02, but is within baseline. Troponin is 0.03. Albumin is 2.3. Urinalysis was performed and is negative for leukocyte esterase, nitrites, but does have 1+ bacteria. Influenza A and B are negative. Chest x-ray shows a small left pleural effusion. The patient was given Levaquin and acetaminophen at 9:25 in the ER. The hospitalist team was asked to evaluate the patient for admission. PAST MEDICAL HISTORY: 1. Multiple myeloma, on chemotherapy, last round finished 07/23/19. 2. Diabetes mellitus. 3. Hypertension. 4. History of DVT, on anticoagulation. PAST SURGICAL HISTORY: Kidney transplant 1992. HOME MEDICATIONS: 1. Apixaban 5 mg p.o. b.i.d. 2. Metoprolol tartrate 50 mg p.o. b.i.d. 3. Nifedipine ER tab 60 mg p.o. daily. 4. Omeprazole 20 mg p.o. daily. 5. Prednisone 5 mg p.o. daily. DRUG ALLERGIES: LACTOSE, diarrhea. FAMILY HISTORY: Both parents were healthy. The patient's mother at a young age from snake bite. Father of old age. No family history of heart disease, diabetes mellitus, CVA, cancer. SOCIAL HISTORY: The patient denies current or former use of tobacco. He does not use alcohol or illicit drugs. 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 He is , with 1 daughter, 1 son. He lives with his and children. In the event that he is unable to make his own medical decisions, he has appointed his Karissa Alcazar to be his surrogate decision maker. REVIEW OF SYSTEMS: A 14-point review of systems has been performed and all the pertinent positives and negatives are in the HPI. All other systems are negative. PHYSICAL EXAMINATION GENERAL: Mr. Alcazar is a well-developed, well-nourished, middle-aged male who appears somewhat older than his stated age and chronically ill. He is resting comfortably in bed. He appears to be in no acute distress. HEENT: PERRL. EOMI with some orbital edema bilaterally. Nonicteric sclerae. Hearing is grossly intact. Oral mucous membranes are moist. There are no lesions. The pharynx is clear. The tongue is at midline. The palate elevates symmetrically. PULMONARY: Symmetrical chest expansion without use of accessory muscles. Clear to auscultation bilaterally without rhonchi, wheezes, or rubs. Breath sounds diminished bibasilar. CARDIOVASCULAR: Regular rate and rhythm with S1, S2 present. No murmurs, rubs , clicks, or gallops. There is no JVD. Bilateral upper extremity edema, right 1+ pitting, trace left. Bilateral lower extremity edema 3+ pitting, pretibial. ABDOMEN: Mildly distended with trace edema. Bowel sounds hypoactive. Nontender to palpation. MUSCULOSKELETAL: Full range of motion. NEURO: The patient is awake. He is alert and oriented x3. Cranial nerves II through XII are grossly intact. Muscle strength 5/5 bilaterally in the upper and lower extremities. DIAGNOSTIC STUDIES/LAB DATA: HGB 9.6, HCT 29, MCV 96, platelets 73. Sodium 128, creatinine 2.02. Troponin 0.03, albumin 2.3, lactic acid 0.8. Urinalysis : Negative nitrites, negative LE, 1+ bacteria. Chest x-ray, impression: Small left pleural effusion. ASSESSMENT AND PLAN: Mr. Alcazar is a 58-year-old male with a past medical history of recently diagnosed multiple myeloma, having finished 1 round of chemotherapy on 07/23/19; diabetes mellitus, [id number]; hypertension ; history of deep vein thrombosis, on anticoagulation; who presented to the ER today with a fever. He will be admitted inpatient for: 1. Fever. The patient presents with a fever of greater than 101. In the ER, he was found to have a fever of 101.4. He was given Tylenol, which relieved his fever. He was also given Levaquin [address] Jay, the patient's oncologist consulted and recommended paracentesis and p.o. Augmentin. We discussed this with the surgical team and plan for a paracentesis tomorrow. In the meantime, the patient will not receive any further antibiotics as he has had one dose of Levaquin. There does not appear to be any other source of infection. The patient denies cough and shortness of breath and chest x-ray only shows left pleural effusion. He has 1+ bacteria on UA, but denies dysuria , frequency, urgency, retention. He denies abdominal pain, nausea, vomiting, or diarrhea. We will plan for paracentesis and examine and analyze fluid that is drawn. 2. Bilateral lower extremity edema. The patient has bilateral lower extremity edema, which has been chronic for the last approximately 8 weeks. He states that he does not wish his legs to be wrapped at this time as it is uncomfortable. He also has a history of deep vein thrombosis. At this time, we will elevate the lower extremities. He will receive some albumin and 40 IV Lasix. We will monitor need for further intervention. 3. Diabetes mellitus. The patient has a reported history of diabetes, but does not appear to be on any medications. We will check a hemoglobin A1c. 4. Hypertension. Continue metoprolol, nifedipine. 5. History of deep vein thrombosis. The patient is on apixaban 5 mg p.o. b.i.d. We will hold this at this time due to plans for paracentesis. 6. Gastroesophageal reflux disease. Continue omeprazole. 7. Multiple myeloma. The patient has followup with oncologist, Dr. Jay on 08/03/19. 8. DVT prophylaxis. Hold apixaban in the setting of possible paracentesis in the morning, resume when appropriate. 9. Code status. Full code. TIME SPENT: Approximately 60 minutes was spent on this admission, greater than half that time was spent [id number] with the patient obtaining history, performing physical, and reviewing the plan of care. This case has been reviewed with my attending, Dr. Son, who is in agreement with the plan of care. EMELYN MARTEL [id number]/[facility] #: [id number] MTDD
[2019-07-30] MEDS ORDERED: Albumin Human 25%* 25 GM/100 ML BTL IV ONE (23:30)
[2019-07-31] MEDS: Acetaminophen TAB* 325 MG PO PRN ×2 (01:10→14:27)
[2019-07-31 05:09] LABS: Hematocrit 22 % (42-52); Hemoglobin 7.9 g/dL (14.0-18.0); Mean Corpuscular HGB Conc 35 g/dL (31-36); Mean Corpuscular Hemoglobin 33 pg (27-31); Mean Corpuscular Volume 95 fL (80-94); Mean Platelet Volume 9.9 fL (7.4-10.4); Platelet Count 62 10^3/uL (150-450); Red Blood Count 2.36 10^6 /uL (4.18-5.48); Red Cell Distribution Width 20 % (10-15); White Blood Count 3.1 10^3/uL (3.5-10.8)
[2019-07-31 05:26] LABS: BUN/Creatinine Ratio 14.6 (8-20); Calcium 7.1 mg/dL (8.6-10.3); EGFR African American 42.3 (>60); EGFR Non-African American 34.9 (>60); Potassium 3.6 mmol/L (3.5-5.0)
[2019-07-31 05:30] LABS: ABS Monocytes 0.2 10^3/ul (0-0.8); ABS Neutrophils 1.9 10^3/ul (1.5-7.7); Eosinophil % 0.2 %; Lymphocyte % 32.9 %; Nucleated Red Blood Cells % 0.1
[2019-07-31 05:35] LABS: Troponin I 0.03 ng/mL (<0.03)
--- NOTE | 2019-07-31 07:41 | PN ---
Subjective Date of Service: 07/31/19 Objective Active Medications: Acetaminophen (Tylenol Tab*) 650 mg PO Q4H PRN PRN Reason: fever, mild to moderate pain Last Admin: 07/31/19 01:10 Dose: 650 mg Metoprolol Tartrate (Lopressor Tab*) 50 mg PO BID JULIET Last Admin: 07/30/19 22:39 Dose: 50 mg Nifedipine (Procardia Xl Tab*) 60 mg PO DAILY [facility] Pantoprazole Sodium (Protonix Tab*) 40 mg PO DAILY [facility] Prednisone (Deltasone Tab*) 5 mg PO DAILY [facility] Vital Signs - 8 hr 07/31/19 07/31/19 07/31/19 01:19 01:46 03:20 Temperature 101.3 F 101.4 F 99.7 F Pulse Rate 131 126 115 Respiratory 20 20 18 Rate Blood Pressure 140/107 173/89 132/79 (mmHg) O2 Sat by Pulse 99 98 100 Oximetry 07/31/19 05:00 Temperature 99.5 F Pulse Rate 120 Respiratory 20 Rate Blood Pressure 130/80 (mmHg) O2 Sat by Pulse 100 Oximetry Oxygen Devices in Use Now: None Result Diagrams: 07/31/19 04:52 07/31/19 04:52 Microbiology and Other Data: Microbiology 07/30/19 23:30 C. difficile DNA Amplification - Final Stool 027 Presumptive NEGATIVE Toxigenic C.diff NEGATIVE Assess/Plan/Problems-Billing Assessment: Mr. Alcazar is a 58 yom PMHx recently multiple myeloma who has received 1 round of chemo, DM, HTN, h/o DVT on AC who presented to the ER with fever of unknown origin, ascites, b/l LE edema. - Patient Problems (1) Fever Current Visit: Yes Status: Acute Code(s): R50.9 - FEVER, UNSPECIFIED SNOMED Code(s): 817099383 (2) Bilateral leg edema Current Visit: Yes Status: Acute Code(s): R60.0 - LOCALIZED EDEMA SNOMED Code(s): 263945342 (3) Pancytopenia Current Visit: Yes Status: Acute Code(s): D61.818 - OTHER PANCYTOPENIA SNOMED Code(s): 875485067 (4) Diabetes mellitus Current Visit: Yes Status: Acute Code(s): E11.9 - TYPE 2 DIABETES MELLITUS WITHOUT COMPLICATIONS SNOMED Code(s): 68930510 (5) Hypertension Current Visit: Yes Status: Acute Code(s): I10 - ESSENTIAL (PRIMARY) HYPERTENSION SNOMED Code(s): 92807829 (6) H/O deep venous thrombosis Current Visit: Yes Status: Acute Code(s): Z86.718 - PERSONAL HISTORY OF OTHER VENOUS THROMBOSIS AND EMBOLISM SNOMED Code(s): 183595571 (7) Multiple myeloma Current Visit: Yes Status: Acute Code(s): C90.00 - MULTIPLE MYELOMA NOT HAVING ACHIEVED REMISSION SNOMED Code(s): 469827412 (8) DVT prophylaxis Current Visit: Yes Status: Acute Code(s): Z29.9 - ENCOUNTER FOR PROPHYLACTIC MEASURES, UNSPECIFIED SNOMED Code(s): 343007288 (9) Full code status Current Visit: Yes Status: Acute Code(s): Z78.9 - OTHER SPECIFIED HEALTH STATUS SNOMED Code(s): 189341396 Status and Disposition: Inpatient. Discharge when stable.
[2019-07-31] MEDS ORDERED: Pantoprazole TAB * 40 MG TAB PO SCH (09:00)
[2019-07-31] MEDS ORDERED: predniSONE TAB* 5 MG PO SCH (09:00)
[2019-07-31] MEDS ORDERED: NIFEdipine ER TAB* 60 MG PO SCH (09:00)
[2019-07-31] MEDS: Metoprolol Tartrate TAB* 50 mg PO SCH (09:36)
[2019-07-31 11:22] LABS: Troponin I 0.03 ng/mL (<0.03)
[2019-07-31 13:07] VITALS: BP 163/97
--- OUTSIDE RECORDS SUMMARY | 2019-07-31 16:18 | XMS REPORT | Summary of Care ---
:1960 Author Organization [facility] Address [address] [place] [address] Care Team Providers Name Role Phone Elvira Hays MD Primary Care Provider Encounter Details Date Type Department Care Team Description 07/17/2019 Procedure visit [facility] RADIATION Rolando Rob Multiple myeloma not ONCOLOGY DMD having achieved [address] [facility] [address] [facility] remission (Primary [place], [place] Dx) 1st Floor [address] [place], [place] [phone] Allergies Active Allergy Reactions Severity Noted Date Comments Lactose Intolerance (Gi) 07/07/2019 Pork-In Food 07/07/2019 documented as of this encounter (statuses as of 07/17/2019) Medications Medication Sig Dispensed Refills Start Date End Date Status warfarin (COUMADIN) Take by mouth 1.5 0 Suspended 5 MG tablet tablets (7.5MG) on Tuesday , Tuesday and Fridays - 1 tablet (5MG) on Tuesday, Tuesday, and Saturdays azathioprine Take 125 mg by 0 Suspended (IMURAN) 50 MG mouth daily tablet predniSONE Take 10 mg by 0 Suspended (DELTASONE) 10 MG mouth daily. tablet atenolol (TENORMIN) Take 50 mg by 0 Suspended 50 MG tablet mouth daily. NIFEdipine Take 60 mg by 0 Suspended (PROCARDIA XL) 60 MG mouth Two Times 24 hr tablet Daily clonidine (CATAPRES) Take 0.1 mg by 0 Suspended 0.1 MG tablet mouth Two Times Daily. cycloSPORINE Take 100 mg by 0 Suspended (SANDIMMUNE) 100 MG mouth Two Times capsule Daily. 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 documented as of this encounter Last Filed Vital Signs Not on filedocumented in this encounter Progress Notes Rolando Rob MD - 07/17/2019 6:00 PM EST Radiation Oncology On-Treatment Visit Note Oniel is currently undergoing a course of Radiation Therapy. He was seen by me prior to treatment today. Image Guided Radiation Therapy imaging reviewed. Diagnosis: Cancer Staging No matching staging information was found for the patient. ECOG Performance Status: 2 - Symptomatic, <50% confined to bed Prior Therapy: Treatment Site: right shoulder and right ankle Treatment intent: Palliative Dose in cGy No. of fractions Current Dose 800 2 Prescribed Dose 2400 6 There is not a planned External beam boost boost. He is receiving concurrent systemic therapy. Chemotherapy 07/12/2019 07/12/2019 07/15/2019 Day, Cycle Day 15, Cycle 1 - bortezomib (VELCADE) SC 1.5 mg/m2 - cyclophosphamide (CYTOXAN) IV 300 mg/m2 - daratumumab (DARZALEX) IV 500 mg 500 mg - rasburicase (ELITEK) IV - - - ABO/RH(D) - - AB POS Gel Antibody Screen - - POS Crossmatch Expiration - - 07/17/2019 Site - - Performed at [facility], [place], [place] YANI,[facility] - - - Called to - - [facility] 1046 07/15/19 UNIT NUMBER - - [id number] Blood Component Type - - Irradiated Leukoreduced Red Cell Unit Division - - 00 STATUS OF UNIT - - ISSUED, FINAL UNIT TAG COMMENT - - In-vivo crossmatch required for this transfusion. Please refer to Nursing Directions sent with this unit.<<13>>ORD,[id number], 09534.99,2090,3,1,1 TRANSFUSION STATUS - - OK TO TRANSFUSE CROSSMATCH RESULT - - Least Incompatible IN-VIVO CROSSMATCH - - No Hemolysis Seen YANI, ANTI-IGG LETITIA SERUM - - NEG Special Request - - - Gram Stain - - - Culture/Results - - - ANTIGEN INFO - - - ANTIBODY IDENT - - - Occult Blood - - - Left Ventricular EF by Teichholz Method - - - Non Parachutist/Combatant Diver Qualified Cytology - - - HEMATOPATHOLOGY - - - CG BONE MARROW - - - RENAL PATHOLOGY - - - SURGICAL - - - FINE NEEDLE ASPIRATE (FNA) - - - POC Glucose - - - Vitals: Vitals - 1 value per visit 06/15/2019 07/16/2019 07/17/2019 SYSTOLIC - - 134 DIASTOLIC - - 97 PULSE - - 70 TEMPERATURE - - 99.7 RESPIRATIONS - - 16 Weight (kg) - 71.396 kg - HEIGHT 172.7 cm - - SPO2 - - 97 BODY MASS INDEX 23.93 kg/m2 - - PAIN SCALE - SCORE - - 7 PAIN SCALE - LOCATION - - - PAIN SCALE - COMMENT - - - Some recent data might be hidden Medications: No current facility-administered medications for this visit. No current outpatient medications on file. Facility-Administered Medications Ordered in Other Visits Medication Dose Route Frequency Provider Last Rate Last Dose allopurinol (ZYLOPRIM) tablet 100 mg 100 mg Oral Daily Ronit Gipson MD 100 mg at 07/17/19 1024 dexamethasone (DECADRON) injection 20 mg 20 mg Intravenous Once Carter MaD dextrose 50 % IV solution 25 mL 25 mL Intravenous PRN Amrita Finnegan MD famotidine (PEPCID) tablet 20 mg 20 mg Oral Q12H Brittnee Siegel PharmD 20 mg at 07/17/19 1024 fentaNYL (SUBLIMAZE) (PF) injection 50 mcg 50 mcg Intravenous Q3H PRN Jennifer Melo NP 50 mcg at 07/17/19 1024 glucagon (human recombinant) (GLUCAGEN) injection 1 mg 1 mg Intramuscular PRN Amrita Finnegan MD glucose (GLUTOSE) 40 % oral gel 15 g 15 g Oral PRN Amrita Finnegan MD GRX ANALGESIC BALM Topical Q6H PRN CELIA Cook heparin (porcine) 1000 units/mL injection 4,000 Units 4,000 Units Intracatheter PRN Jamila Villela MD 4,000 Units at 06/28/19 0907 heparin flush (porcine) 100 UNIT/ML injection 100 Units 100 Units Intracatheter PRN Jennifer Melo NP heparin lock flush 10 UNIT/ML injection 20 Units 20 Units Intracatheter Q12H CELIA Cook 20 Units at 07/16/19 2106 heparin lock flush 10 UNIT/ML injection 20 Units 20 Units Intracatheter PRN Jennifer Melo NP lidocaine (LIDODERM) 5 % 1 patch 1 patch Transdermal Q24H Nano Mendoza MD 1 patch at 07/12/19 1745 metoprolol tartrate (LOPRESSOR) tablet 50 mg 50 mg Oral BID CELIA Cook metroNIDAZOLE (FLAGYL) IVPB 500 mg 500 mg Intravenous Q6H Jennifer Melo NP 100 mL/hr at 07/17/19 1625 500 mg at 07/17/19 1625 [START ON 07/18/2019] NIFEdipine (PROCARDIA XL) 24 hr tablet 60 mg 60 mg Oral Daily CELIA Cook ondansetron (ZOFRAN) injection 8 mg 8 mg Intravenous Q8H PRN Jennifer Melo NP piperacillin-tazobactam (ZOSYN) IVPB 3.375 g (premix) 3.375 g Intravenous Q8H Pamela Padron NP 12.5 mL/hr at 07/17/19 1719 3.375 g at 1719 predniSONE (DELTASONE) tablet 20 mg 20 mg Oral Once Kaleigh Terrell MD predniSONE (DELTASONE) tablet 5 mg 5 mg Oral Daily Jennifer Melo NP 5 mg at 07/17/19 1024 sodium bicarbonate tablet 1,300 mg 1,300 mg Oral TID Jennifer Melo NP 1,300 mg at 626 sodium chloride (OCEAN) 0.65 % nasal spray 2 spray 2 spray Each Nare Q1H PRN Ronit Gipson MD vancomycin (VANCOCIN) 50 mg/mL oral solution 125 mg 125 mg Oral Q6H Brandan Willis MD 125 mg at 07/17/19 1617 Clinical Evaluation: Subjective He is tolerating therapy without difficulty. He reports no reaction to radiation therapy. Energy level is fair . He has no pain in right ankle He has improvement in pain in right shoulder. Objective Weight is stable. The skin in the irradiated area is in good condition. Image Review Reviewed images have been satisfactory. Changes made as necessary. Impression and Plan: Oniel is tolerating radiation therapy as expected. No changes We reviewed what to expect from ongoing treatment. He was counseled, encouraged , and questions wereaddressed. We will continue radiation therapy as planned. Rolando Rob MD documented in this encounter Plan of Treatment Health Maintenance Due Date Last Done Comments MMR Vaccines (1 of 1 - 1963 Standard series) Pneumococcal Vaccine: 1968 Pediatrics (0 to 5 Years) and At-Risk Patients (6 to 64 Years) (1 of 3 - PCV13) DTaP,Tdap,and Td Vaccines (1 1969 - Tdap) Hepatitis B Vaccines (1 of 3 1981 - Risk 3-dose series) Colon Cancer Screening 10 yrs 2012 Influenza Vaccine 05/29/2019 Pneumococcal Vaccine: 65+ 2027 Years (1 of 2 - PCV13) Hepatitis C Screening (B. Completed 01/30/2017, [id number]) 01/30/2017 HIV Screening Completed 06/20/2019 HIB Vaccines Aged Out No longer eligible based on patient's age to complete this topic Hepatitis A Vaccines Aged Out No longer eligible based on patient's age to complete this topic IPV Vaccines Aged Out No longer eligible based on patient's age to complete this topic Varicella Vaccines Aged Out No longer eligible based on patient's age to complete this topic documented as of this encounter Implants Implanted Type Area Fit Model Device Shelf Expiration Model / Identifier Date Serial / Lot Picc- 5fr 2l Powerpicc. - [id number] [facility] 09/28/2021 [id number] / Implanted: Qty: 1 on 06/26/2019 by Katarina Rizzo MD at [facility] IN[facility]IENT / [id number] documented as of this encounter Results Not on filedocumented in this encounter Visit Diagnoses Diagnosis Multiple myeloma not having achieved remission - Primary Multiple myeloma, without mention of having achieved remission documented in this encounter Additional Health Concerns Infection Noted Time Resolved Time C. difficile 07/08/2019 1:57 PM EST documented as of this encounter
--- OUTSIDE RECORDS SUMMARY | 2019-07-31 16:18 | XMS REPORT | Summary of Care ---
:[address] [facility] Address [address] [place] [address] Care Team Providers Name Role Phone Elvira Hays MD Primary Care Provider Reason for Referral Diagnostic Radiology (Routine) Status Reason Specialty Diagnoses / Referred By Referred To Procedures Contact Contact Authorized Diagnoses Multiple myeloma not having achieved remission Je Barcenas MD CANCER CENTER Procedures CT Simulation At [facility] Onc (In Office) [address] [facility] [address] [facility] [address] [place], [place] Floor [address] [place] [address] Email: [email or web address] Encounter Details Date Type Department Care Team Description 07/12/2019 Procedure visit [facility] RADIATION Rolando Rob Multiple myeloma not ONCOLOGY MD Riky having achieved [address] 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 He presents today, 07/12/2019, for CT Simulation to plan a course of radiation therapy. CT Simulation Note Two setups where used for 1) Right ankle and 2) right arm Right ankle He was placed on the CT simulator table in the supine with feet first position. The right ankle was centered in the field of view. A tablepad was made to maintain proper positioning. Radiopaque BB's were used to yuliana the approximate isocenter. CT e commerce merchandising coordinator was obtained to ensure that the intended treatment area was included in scan. No contrast was administered. Multiple axial images were obtained fromthe entire region of interest which were reviewed for image quality. The patient tolerated the procedure well. Consent was obtained prior to simulation. Right arm He was placed on the CT simulator table in the supine position with right arm akimbo. The right arm was centered in the field of view. A tablepad was used for positioning. Radiopaque BB's were used to yuliana the approximate isocenter. CT e commerce merchandising coordinator was obtained to ensure that the intended treatment area was included in scan. No contrast was administered. Multiple axial images were obtained from the entire region of interest which were reviewed for image quality. The patient tolerated the procedure well. Consent was obtained prior to simulation. tolerated the simulation without any complications. Patient is planned to start radiation, following treatment plan generation. The entire procedure was supervised by Rolando Rob MD. Je Barcenas MD Radiation Oncology Resident, PGY-2 I was present and supervised the CT simulation for Oniel Alcazar, reviewed and approved the treatment setup and devices, and agree with the findings as described by Dr. Barcenas. documented in this encounter Plan of Treatment Health Maintenance Due Date Last Done Comments MMR Vaccines (1 of - 1961 Standard series) Pneumococcal Vaccine: 1968 [...] PCV13) Hepatitis C Screening (B. Completed 01/30/2017, [id number]) 01/30/2017 HIV Screening Completed 06/20/2019 HIB Vaccines [...] of this encounter Implants Implanted Type Area Supervisor Record Press Device Shelf Expiration Model / Identifier Date Serial / Lot Picc- 5fr 2l Powerpicc. - [id number] [facility] 09/28/2021 [id number] / Implanted: Qty: 1 on 06/26/2019 by Katarina Rizzo MD at [facility] / [id number] documented as of this encounter Procedures Procedure Name Priority Date/Time Associated Diagnosis Comments CT SIMULATION AT RAD Routine 07/12/2019 1:31 PM Multiple myeloma not ONC (IN OFFICE) EST having achieved remission documented in this encounter Results CT Simulation At Rad Onc (In Office) (07/12/2019 1:31 PM EST) Specimen Performing Organization Address City/State/Zipcode Phone Number [facility] [address] [place] [address] documented in this encounter Visit Diagnoses Diagnosis Multiple myeloma not having achieved remission - Primary Multiple myeloma, without mention of having achieved remission documented in this encounter Additional Health Concerns Infection Noted Time Resolved Time C. difficile 07/08/2019 1:57 PM EST documented as of this encounter
--- OUTSIDE RECORDS SUMMARY | 2019-07-31 16:18 | XMS REPORT ---
:1960 Author Organization [facility] Care Team Providers Name Role Phone Unavailable Unavailable Unavailable Problems This patient has no known problems. Allergies, Adverse Reactions, Alerts Allergy Allergy Status Severity Reaction(s) Onset Inactive Treating Comments Name Type Date Date Clinician Unknown None Active Unknown None Unknown No Known Allergies For This Patient Medications Ordered Filled Start Stop Current Ordering Indication Dosage Frequency Signature Comments Components Medication Medication Date Date Medication? Clinician (SIG) Name Name No Known No Known No None None None Medications Medications For This For This Patient Patient Procedures This patient has no known procedures. Results This patient has no known results.
--- OUTSIDE RECORDS SUMMARY | 2019-07-31 16:22 | XMS REPORT | Continuity of Care Document ---
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 Onset: 01/03/2017 Localized, primary osteoarthritis of the ankle Lg Mejia MD Onset: 06/05 and/or foot Social History Type Date Description Comments Sex Unknown Tobacco Use Start: Unknown Never Smoked Cigarettes Smoking Status Reviewed: 06/13/19 Never Smoked Cigarettes ETOH Use 08/07/2013 Denies alcohol use Tobacco Use Start: Unknown Patient has never smoked Recreational Drug Use Denies Drug Use Exercise Type/Frequency Exercises sporadically Allergies, Adverse Reactions, Alerts Description No Known Drug Allergies Medications Active Medications SIG Qnty Indications Ordering Date Provider Furosemide 1 tab by mouth every 30tabs Z94.0 Mohammad A. 06/13/2019 20mg Tablets day MD Yoshi Omeprazole 1 by mouth every day 60caps K29.00 [facility] 06/12/[address] Angelo take 1 tab by mouth 90tabs Unknown 04/29/2019 50mg Tablets once daily Procardia XL 2 tab by mouth every 60tabs Kim Prince, 12/26/2018 60mg day MD Tablets ER 24HR Warfarin Sodium take as directed 45tabs Elvira 03/14/2017 5mg Eula Hays Tablets Cyanocobalamin inject one 1units [facility] 06/28/2016 milliliters (cc) Eula Hays 1000mcg/ML Solution [...] Mouth Once Daily Eula Hays History Medications Furosemide 1 by mouth every 5tabs I89.0 Elvira Hays, 05/29/2019 - 20mg Tablets other day Eula 06/04/2019 Azithromycin take 2 tablets 6tabs J06.9 An [...] CPT Code Status Date Vaccine Lot # [id number] Given 07/10/2018 Influenza Virus Vaccine, Quadrivalent, Split, [id number] Preservative Free 50212 Given 06/09/2016 Influ Virus Vaccine, Quadrivalent, Split Virus, [place] [id number] [address] Given 07/16/2015 Influenza Virus Vaccine, Quadrivalent, Split, [id number] Preservative Free 44667 Given 08/08/2014 Pneumococcal Conjugate Vaccine 13 Valent For [id number] Intramuscular Use 16601 Given 08/08/2014 Flu Vaccine Split Virus Preservative Free For [id number] Indiv 3Yr Older 26865 Given 10/31/2013 Tdap - Tetanus/Diptheria/Acellular Pertussis [id number] 43368 Given 07/01/2013 Influenza Virus 3Yrs & Over 05910 Given 06/27/2012 Pneumonia Vaccine [id number] Vital Signs Date Vital Result Comment 06/13/2019 2:03pm Height 69 inches 5'9" Weight 152.00 lb Heart Rate 74 /min BP Systolic 163 mmHg L arm BP Diastolic 94 mmHg L arm O2 % BldC Oximetry 100 % BMI (Body Mass Index) 22.4 kg/m2 06/12/2019 12:11pm Height 69 inches 5'9" Weight 155.00 lb Heart Rate 68 /min BP Systolic 142 mmHg BP Diastolic 84 mmHg Body Temperature 97.9 F O2 % BldC Oximetry 99 % BMI (Body Mass Index) 22.9 kg/m2 Results Test Date Facility Test Result H/L Range Note Inr/Protime [facility] Inr 4.72 High 0.82-1.09 [address] [place], [place] [id number] [phone] Laboratory test [facility] B-Type 411 pg/mL High <= 100 finding [address] [place] [address] Peptide BNP [phone] Basic Metabolic [facility] Sodium 139 mmol/L Normal 135-145 Panel [address] [place], [place] [id number] [phone] Potassium 4.5 mmol/L Normal 3.5-5.0 Chloride 112 mmol/L High 101-111 Co2 Carbon Dioxide 19 mmol/L Low 22-32 Anion Gap 8 mmol/L Normal 2-11 Glucose 143 mg/dL High 70-100 Blood Urea Nitrogen 54 mg/dL High 6-24 Creatinine 2.86 mg/dL High 0.67-1.17 BUN/Creatinine Ratio 18.9 Normal 8-20 Calcium 9.1 mg/dL Normal 8.6-10.3 Egfr Non- 23.0 >60 Egfr 27.8 >60 2 Laboratory 06/12/2019 [facility] TSH (Thyroid 2.99 Normal 0.34 -5.60 test finding [address] Stim Horm) mcIU/mL [place], [place] [id number] [phone] Protime W/ Inr 06/12/2019 [facility] Prothrombin 62,5 Time Inr 5.2 Protime W/ Inr 05/03/2019 [facility] Prothrombin Time 35.0 Inr 2.9 Protime W/ Inr 04/04/2019 [facility] Prothrombin Time 31.4 Inr 2.6 Protime W/ Inr 03/07/2019 [facility] Prothrombin Time 32.9 Inr 2.7 Inr/Protime 02/22/2019 [facility] Inr 2.11 High 0.82-1.[address] [place] [address] [phone] Lipid Profile 02/22/2019 [facility] Triglycerides 212 4, 5 (Trig/Chol/HDL) [address] mg/[place] [address] [phone] Cholesterol 197 mg/dL 6 HDL Cholesterol 45.8 mg/dL 7 LDL Cholesterol 109 mg/dL 8 Laboratory test 02/22/2019 [facility] Uric Acid 8.5 mg/dL High 4.4-7.6 [address] [place] [address] [phone] TSH (Thyroid Stim Horm) 3.54 mcIU/mL Normal 0.34-5.60 10 Protime W/ Inr 01/26/2019 [facility] Prothrombin Time 28.7 Inr 2.4 Protime W/ Inr 12/26/2018 [facility] Prothrombin Time 29.4 Inr 2.5 1 Standard intensity warfarin therapeutic range: 2.0-3.0 High intensity warfarin therapeutic range: 2.5-3.5 2 Because ethnic data is not always readily [...] 15-29 5 Kidney failure <15 (or dialysis) 3 Standard intensity warfarin therapeutic range: 2.0-3.0 High intensity warfarin therapeutic range: 2.5-3.5 4 FASTING 10 HOUR 5 Desirable: <150 Borderline High: 150-199 High: 200-499 Very High: >500 6 Desirable: <200 Borderline High: 200-239 High: >239 7 Low: <40 Desirable: 40-60 High: >60 8 Desirable: <100 Near Optimal: 100-129 Borderline High: 130-159 High: 160-189 Very High: >189 9 FASTING 10 HOUR 10 FASTING 10 HOUR Procedures Date Code Description Status 05/29/2019 87885 Admin Of Inj Completed 05/15/2019 98783 Admin Of Inj Completed 04/04/2019 99188 Admin Of Inj Completed 01/26/2019 03251 Admin Of Inj Completed 01/03/2014 [id number] Colonoscopy Completed 06/13/2012 585762446 Bone Mineral Density Test Completed Medical Devices Description No Information Available Encounters Type Date Location Provider Dx Diagnosis Office Visit 05/09/2019 [facility] Nephrology Wilber Espinoza I12.9 Hypertensive chronic 2:00p MD Yoshi kidney disease w stg 1-4/unsp chr kdny N18.3 Chronic kidney disease, stage 3 (moderate) Z79.01 ham facer (current) use of anticoagulants Z94.0 Kidney transplant status I10 Essential (primary) hypertension Office Visit 02/26/2019 Carmen Mejia M65.4 Radial styloid 2:00p Orthopedics at [facility] [Keith] Office Visit 02/20/2019 [facility] Internal Elviraaron Hays Z00.00 Encntr for general 2:00p Medicine - Yimi Forde adult medical exam w/o abnormal findings E78.1 Pure hyperglyceridemia Z12.83 Encounter for screening for malignant neoplasm of skin M25.532 Pain in left wrist E79.0 Hyperuricemia w/o signs of inflam arthrit and tophaceous dis I10 Essential (primary) hypertension Z94.0 Kidney transplant status Z79.01 ham facer (current) use of anticoagulants Office Visit 01/31/2019 1:00p [facility] Internal An Jaxon, J06.9 [facility], unspecified Assessments Date Code Description Provider 06/13/2019 Z94.0 Kidney transplant status Wilber Belle MD 06/13/2019 N17.8 Other acute kidney failure Wilber Belle MD 06/13/2019 N18.4 Chronic kidney disease, stage 4 (severe) Wilber Belle MD 06/12/2019 R60.0 Localized edema Elvira Hays M.D. 06/12/2019 I89.0 Lymphedema, not elsewhere classified Elvira Hays M.D. 06/12/2019 Z79.01 ham facer (current) use of anticoagulants Elvira Hays M.D. 06/12/2019 K29.00 Acute gastritis without bleeding Elvira Hays M.D. 06/12/2019 I82.501 Chronic embolism and thrombosis of Elvira Hays M.D. unspecified deep veins of right lower extremity 06/05/2019 I89.0 Lymphedema, not elsewhere classified Lg Mejia MD 06/05/2019 M19.071 Primary osteoarthritis, right ankle and foot Lg Mejia MD 05/29/2019 I89.0 Lymphedema, not elsewhere classified Elvira Hays M.D. 05/15/2019 D51.9 Vitamin B12 deficiency anemia, unspecified Nurse Visit A 05/09/2019 I12.9 Hypertensive chronic kidney disease with Wilebr Belle MD stage 1 through stage 4 chronic kidney disease, or unspecified chronic kidney disease 05/09/2019 N18.3 Chronic kidney disease, stage 3 (moderate) Wilber Belle MD 05/09/2019 Z79.01 ham facer (current) use of anticoagulants Wilber Belle MD 05/09/2019 Z94.0 Kidney transplant status Wilber Belle MD 05/09/2019 I10 Essential (primary) hypertension Wilber Belle MD 05/03/2019 I82.501 Chronic embolism and thrombosis of Nurse Visit A unspecified deep veins of right lower extremity 05/03/2019 Z79.01 ham facer (current) use of anticoagulants Nurse Visit A 04/04/2019 I82.501 Chronic embolism and thrombosis of Nurse Visit A unspecified deep veins of right lower extremity 04/04/2019 Z79.01 ham facer (current) use of anticoagulants Nurse Visit A 04/04/2019 D51.9 Vitamin B12 deficiency anemia, unspecified Nurse Visit A 03/07/2019 Z79.01 residential (current) use of anticoagulants Nurse Visit A [...] 02/20/2019 M25.532 Pain in left wrist Elvira aHys M.D. 02/20/2019 E79.0 Hyperuricemia without signs of inflammatory Elvira Hays M.D. arthritis and to 02/20/2019 I10 Essential (primary) hypertension Elvira Hays M.D. 02/20/2019 Z94.0 Kidney transplant status Elvira Hays M.D. 02/20/2019 Z79.01 residential (current) use of anticoagulants Elvira Hays M.D. 01/31/2019 J06.9 Acute upper respiratory infection, An Coates MD unspecified 01/26/2019 D51.9 Vitamin B12 deficiency anemia, unspecified Nurse Visit A 01/26/2019 I82.501 Chronic embolism and thombos unsp deep veins Nurse Visit A of r low extrem 01/26/2019 Z79.01 ham facer (current) use of anticoagulants Nurse Visit A 12/26/2018 Z79.01 residential (current) use of anticoagulants Nurse Visit A 12/26/2018 I82.501 Chronic embolism and thombos unsp deep veins Nurse Visit A of christiano pope extrem Plan of Treatment Future Appointment(s):06/15/2019 10:00 am - Wilber Belle MD at [facility] Ussnbsmccq81/09/2020 2:00 pm - Wilber Belle MD at [facility] Bklzmtrmho02/16/ 2019 - Wilber Belle MDZ94.0 Kidney transplant statusNew Medication: Furosemide 20 mg - 1 tab by mouth every dayFollow up:PgjmlvG58.8 Other acute kidney unywkjrQ24.4 Chronic kidney disease, stage 4 (severe) Functional Status Description No Information Available Mental Status Description No Information Available Referrals Refer to Dr Reason for Referral Status Appt Date Carlos Quan MD BLE lymphedema Created [address] [place] [address] [phone] Matheus Montelongo MD Sent 04/09/2019 [address] [place] [address] [phone] Lg Mejia MD Sent 02/26/2019 [address] [place] [address] [phone]
--- OUTSIDE RECORDS SUMMARY | 2019-07-31 16:23 | XMS REPORT | Continuity of Care Document ---
:1960 External Reference #:[id number] Author Name Elvira Hays M.D. (transmitted by agent of provider Marlena Ayala) Address [address] [facility] [address] [facility], [place] [address] Care Team Providers Name Role Phone Reji Gonzalez MD - Nephrology Care Team Information Medicaid Collection Specialist [phone] Elvira Hays MD - Internal Care Team Information Medicaid Collection Specialist [phone] Medicine Problems Active Problems Provider Date Osteoporosis [...] Unknown Never Smoked Cigarettes Smoking Status Reviewed: 06/12/19 Never Smoked Cigarettes ETOH Use 08/07/2013 Denies alcohol use Tobacco Use Start: Unknown Patient has never smoked Recreational Drug Use Denies Drug Use Exercise Type/Frequency Exercises sporadically Allergies, Adverse Reactions, Alerts Description No Known Drug Allergies Medications Active Medications SIG Qnty Indications Ordering Date Provider Omeprazole 1 by mouth every day 60caps K29.00 [facility] 06/12/2019 20mg Eula Hays Capsules DR Angelo take 1 tab by mouth 90tabs Unknown 04/29/2019 50mg Tablets once daily Procardia XL 2 tab by mouth every 60tabs Kim Prince, 12/26/2018 60mg day MD Tablets ER 24HR Warfarin Sodium take as directed 45tabs [facility] 03/14/2017 5mg Eula Hays Tablets Cyanocobalamin inject one 1units [facility] 06/28/2016 milliliters (cc) Eula Hays 1000mcg/ML Solution intramuscularly weekly X 1 month then once a month Compression Stockings X large size 1Pair 453.50 [facility] 11/07/2014 Eula Hays Misc Prednisone 1 po qd 30tabs Unknown 10mg Tablets Clonidine HCL Take 1 Tablet By 60tabs Elvira 0.1mg Mouth Twice Daily Eula Hays Tablets Cyclosporine 1 cap by mouth twice 60caps Unknown 100mg a day Capsules Atenolol Take 1 Tablet By 90tabs Elvira 50mg Tablets Mouth Once Daily Eula Hays History Medications Furosemide 1 by mouth every 5tabs I89.0 [facility] Saúl, 05/29/2019 - 20mg Tablets other day Eula [...] CPT Code Status Date Vaccine Lot # [id number] Given 07/10/2018 Influenza Virus Vaccine, Quadrivalent, Split, [id number] Preservative Free 34957 Given 06/09/2016 Influ Virus Vaccine, Quadrivalent, Split Virus, [place] [id number] [address] Given 07/16/2015 Influenza Virus Vaccine, Quadrivalent, Split, [id number] Preservative Free 85280 Given 08/08/2014 Pneumococcal Conjugate Vaccine 13 Valent For [id number] Intramuscular Use 15793 Given 08/08/2014 Flu Vaccine Split Virus Preservative Free For 545751 Indiv 3Yr Older 84589 Given 10/31/2013 Tdap - Tetanus/Diptheria/Acellular Pertussis [id number] 34318 Given 07/01/2013 Influenza Virus 3Yrs & Over 99890 Given 06/27/2012 Pneumonia Vaccine [id number] Vital Signs Date Vital Result Comment 06/12/2019 12:11pm Height 69 inches 5'9" Weight 155.00 lb Heart Rate 68 /min BP Systolic 142 mmHg BP Diastolic 84 mmHg Body Temperature 97.9 F O2 % BldC Oximetry 99 % BMI (Body Mass Index) 22.9 kg/m2 06/05/2019 2:10pm Height 69 inches 5'9" Weight 142.00 lb Heart Rate 66 /min BP Systolic Sitting 128 mmHg BP Diastolic Sitting 72 mmHg Respiratory Rate 14 /min Pain Level 6 O2 % BldC Oximetry 98 % BMI (Body Mass Index) 21.0 kg/m2 Results Test Date Facility Test Result H/L Range Note Protime W/ Inr 06/12/2019 [facility] Prothrombin Time 62,5 Inr 5.2 Protime W/ Inr 05/03/2019 [facility] Prothrombin Time 35.0 Inr 2.9 Protime W/ Inr 04/04/2019 [facility] Prothrombin Time 31.4 Inr 2.6 Protime W/ Inr 03/07/2019 [facility] Prothrombin Time 32.9 Inr 2.7 Inr/Protime 02/22/2019 [facility] Inr 2.11 High 0.82-1.[address] [place] [address] [phone] Lipid Profile 02/22/2019 [facility] Triglycerides 212 2, 3 (Trig/Chol/HDL) [address] mg/dL [place], [place] [id number] [phone] Cholesterol 197 mg/dL 4 HDL Cholesterol 45.8 mg/dL 5 LDL Cholesterol 109 mg/dL 6 Laboratory test 02/22/2019 [facility] Uric Acid 8.5 mg/dL High 4.4-7.6 [address] [place] [address] [phone] TSH (Thyroid Stim Horm) 3.54 mcIU/mL Normal 0.34-5.60 8 Protime W/ Inr 01/26/2019 [facility] House Prothrombin Time 28.7 Inr 2.4 Protime W/ Inr 12/26/2018 [facility] In House Prothrombin Time 29.4 Inr 2.5 [...] HOUR Procedures Date Code Description Status 05/29/2019 64337 Admin Of Inj Completed 05/15/2019 78779 Admin Of Inj Completed 04/04/2019 48396 Admin Of Inj Completed 01/26/2019 64495 Admin Of Inj Completed 01/03/2014 [id number] Colonoscopy Completed 06/13/2012 [id number] Bone Mineral Density Test Completed Medical Devices Description No Information Available Encounters Type Date Location Provider Dx Diagnosis Office Visit 05/09/2019 [facility] Wilber Espinoza I12.9 Hypertensive chronic 2:00p MD Yoshi kidney disease w stg 1-4/unsp [facility] kdny N18.3 Chronic kidney disease, stage 3 (moderate) Z79.01 o[facility] (current) use of anticoagulants Z94.0 Kidney transplant status I10 Essential (primary) hypertension [facility] Radial styloid 2:00p [place]oped[facility] [place] Office Visit 02/20/2019 [facility] Elvirakenyatta Hays, Z00.00 Encntr for general 2:00p Medicine - Ccm[facility] M.DSylvia adult medical exam w/o abnormal findings E78.1 Pure hyperglyceridemia Z12.83 Encounter for screening for malignant neoplasm of skin M25.532 Pain in left wrist E79.0 Hyperuricemia w/o signs of inflam arthrit and tophaceous dis I10 Essential (primary) hypertension Z94.0 Kidney transplant status Z79.01 [facility] (current) use of anticoagulants Office Visit 01/31/2019 1:00p [facility] Internal An Jaxon, J06.9 Acute upper Medicine - [facility] respiratory infection, unspecified Assessments Date Code Description Provider 06/12/2019 R60.0 Localized edema Elvira Hays M.D. 06/12/2019 I89.0 Lymphedema, not elsewhere classified Elvira Hays M.D. 06/12/2019 Z79.01 [facility] (current) use of anticoagulants Elvira Hays M.D. 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 01/31/2019 J06.9 Acute upper respiratory infection, An Coates MD unspecified 01/26/2019 D51.9 Vitamin B12 deficiency anemia, unspecified Nurse Visit A 01/26/2019 I82.501 Chronic embolism and thombos unsp deep veins Nurse Visit A of r low extrem 01/26/2019 Z79.01 [facility] (current) use of anticoagulants Nurse Visit A 12/26/2018 Z79.01 [facility] (current) use of anticoagulants Nurse Visit A 12/26/2018 I82.501 Chronic embolism and thombos unsp deep veins Nurse Visit A of r low extrem Plan of Treatment Future Appointment(s):11/05/2019 2:00 pm - Wilber Belle MD at [facility] Angeahqiir78/15/2019 - Elvira Hays, M.D.R60.0 Localized pmgauI00.0 Lymphedema , not elsewhere zyqldtmpflV58.01 [facility] (current) use of anticoagulantsComments:please hold the coumadin as of today and have it repeated in 2 daysK29.00 Acute gastritis without bleedingNew Medication: Omeprazole 20 mg - 1 by mouth every dayComments:I have prescribed an acid reducing medication to help with heart burn as you ae taking the prednisone which causes gastritis (inflammation of the lining of the stomach lining) I82.501 Chronic embolism and thrombosis of unspecified deep veins of right lower extremity Functional Status Description No Information Available Mental Status Description No Information Available Referrals Refer to Dr Reason for Referral Status Appt Date Carlos Quan MD BLE lymphedema Created [address] [place] [address] [phone] Matheus Montelongo MD Sent 04/09/[address] [place] [address] [phone] Lg Mejia MD Sent 02/26/2019 [address] [place] [address] [phone]
--- OUTSIDE RECORDS SUMMARY | 2019-07-31 16:23 | XMS REPORT | Continuity of Care Document ---
:1960 External Reference #:[id number] Author Name Lg Mejia MD (transmitted by agent of provider Kaleigh Baca) Address [address] [place] [id number] Care Team Providers Name Role Phone Reji Gonzalez MD - Nephrology Care Team Information Bobbin Coil Winder [phone] Elvira Hays MD - Internal Care Team Information Bobbin Coil Winder [phone] Medicine Problems Active Problems Provider Date Osteoporosis [...] Unknown Never Smoked Cigarettes Smoking Status Reviewed: 06/05/19 Never Smoked Cigarettes ETOH Use 08/07/2013 Denies [...] XL 2 tab by mouth every 60tabs Kimaron Prince, 12/26/2018 60mg day MD Tablets ER 24HR Warfarin Sodium take as directed 45tabs [facility] 03/14/2017 5mg Eula Hays Tablets Cyanocobalamin inject one 1units [facility] 06/28/2016 milliliters (cc) Eula Hays 1000mcg/ML Solution intramuscularly weekly X 1 month then once a month Compression Stockings X large size 1Pair 453.50 [facility] 11/07/2014 Eula Hays Misc Prednisone 1 po qd 30tabs Unknown 10mg Tablets Clonidine HCL Take 1 Tablet By 60tabs Elvira 0.1mg Mouth Twice Daily Eula Hays Tablets Cyclosporine 1 cap by mouth twice 60caps Unknown 100mg a day Capsules Atenolol Take 1 Tablet By 90tabs Elvira 50mg Tablets Mouth Once Daily Eula Hays History Medications Furosemide 1 by mouth every 5tabs I89.0 Elvirakenyatta Hays, 05/29/2019 - 20mg Tablets other day M.DSylvia 06/04/2019 Azithromycin take 2 tablets 6tabs J06.9 [...] CPT Code Status Date Vaccine Lot # [id number] Given 07/10/2018 Influenza Virus Vaccine, Quadrivalent, Split, [id number] Preservative Free 76898 Given 06/09/2016 Influ Virus Vaccine, Quadrivalent, Split Virus, [place] [id number] [address] Given 07/16/2015 Influenza Virus Vaccine, Quadrivalent, Split, [id number] Preservative Free 33466 Given 08/08/2014 Pneumococcal Conjugate Vaccine 13 Valent For [id number] Intramuscular Use 02393 Given 08/08/2014 Flu Vaccine Split Virus Preservative Free For [id number] Indiv 3Yr Older 27706 Given 10/31/2013 Tdap - Tetanus/Diptheria/Acellular Pertussis [id number] 12189 Given 07/01/2013 Influenza Virus 3Yrs & Over 67031 Given 06/27/2012 Pneumonia Vaccine [id number] Vital Signs Date Vital Result Comment 06/05/2019 2:10pm Height 69 inches 5'9" Weight 142.00 lb Heart Rate 66 /min BP Systolic Sitting 128 mmHg BP Diastolic Sitting 72 mmHg Respiratory Rate 14 /min Pain Level 6 O2 % BldC Oximetry 98 % BMI (Body Mass Index) 21.0 kg/m2 05/29/2019 12:24pm Height 69 inches 5'9" Weight 142.00 lb Heart Rate 59 /min BP Systolic Sitting 140 mmHg BP Diastolic Sitting 78 mmHg Body Temperature 98.8 F O2 % BldC Oximetry 98 % BMI (Body Mass Index) 21.0 kg/m2 Results Test Date Facility Test Result H/L Range Note Protime W/ Inr 05/03/2019 [facility] Prothrombin Time 35.0 Inr 2.9 Protime W/ Inr 04/04/2019 [facility] Prothrombin Time 31.4 Inr 2.6 Protime W/ Inr 03/07/2019 [facility] Prothrombin Time 32.9 Inr 2.7 Inr/Protime 02/22/2019 [facility] Inr 2.11 High 0.82-1.[address] [place] [address] [phone] Lipid Profile 02/22/2019 [facility] Triglycerides 212 2, 3 (Trig/Chol/HDL) [address] mg/[place] [address] [phone] Cholesterol 197 mg/dL 4 HDL Cholesterol 45.8 mg/dL 5 LDL Cholesterol 109 mg/dL 6 Laboratory test 02/22/2019 [facility] Uric Acid 8.5 mg/dL High 4.4-7.6 [address] [place] [address] [phone] TSH (Thyroid Stim Horm) 3.54 mcIU/mL Normal 0.34-5.60 8 Protime W/ Inr 01/26/2019 [facility] In House Prothrombin Time 28.7 Inr 2.4 Protime W/ Inr 12/26/2018 [facility] In House Prothrombin Time 29.4 Inr 2.5 [...] HOUR Procedures Date Code Description Status 05/29/2019 41191 Admin Of Inj Completed 05/15/2019 19812 Admin Of Inj Completed 04/04/2019 16406 Admin Of Inj Completed 01/26/2019 74077 Admin Of Inj Completed 01/03/2014 [id number] Colonoscopy Completed 06/13/2012 [id number] Bone Mineral Density Test Completed Medical Devices Description No Information Available Encounters Type Date Location Provider Dx Diagnosis Office Visit 05/09/2019 [facility] Nephrology Wilber Espinoza I12.9 Hypertensive chronic 2:00p MD Yoshi kidney disease w stg 1-4/unsp [facility] kdny N18.3 Chronic kidney disease, stage 3 (moderate) 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 Z94.0 Kidney transplant status I10 Essential (primary) hypertension Office Visit 02/26/2019 Carmen Mejia, M65.4 Radial styloid 2:00p Orthopedics at tenosynovitis [Keith] Office Visit 02/20/2019 [facility] Internal Elvira Saúl, Z00.00 Encntr for general 2:00p Medicine - Ccmob M.DSylvia adult medical exam w/o abnormal findings E78.1 Pure hyperglyceridemia Z12.83 Encounter for screening for malignant neoplasm of skin M25.532 Pain in left wrist E79.0 Hyperuricemia w/o signs of inflam arthrit and tophaceous dis I10 Essential (primary) hypertension Z94.0 Kidney transplant status Z79.01 prison (current) use of anticoagulants Office Visit 01/31/2019 1:00p [facility] Internal An Jaxon, J06.9 Acute upper Medicine - Ccmob respiratory infection, unspecified Assessments Date Code Description Provider 06/05/2019 I89.0 Lymphedema, not elsewhere classified Lg [...] 3 (moderate) Wilber Belle MD 05/09/2019 Z79.01 prison (current) use of anticoagulants Wilber Belle MD 05/09/2019 Z94.0 Kidney transplant status Wilber Belle MD 05/09/2019 I10 Essential (primary) hypertension Wilber Belle MD 05/03/2019 I82.501 Chronic embolism and thrombosis of Nurse Visit A unspecified deep veins of right lower extremity 05/03/2019 Z79.01 prison (current) use of anticoagulants Nurse Visit A 04/04/2019 I82.501 Chronic embolism and thrombosis of Nurse Visit A unspecified deep veins of right lower extremity 04/04/2019 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 02/20/2019 Z79.01 prison (current) use of anticoagulants Elvira Hays M.D. 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 Nurse Visit A 12/26/2018 Z79.01 prison (current) use of anticoagulants Nurse Visit A 12/26/2018 I82.501 Chronic embolism and thombos unsp deep veins Nurse Visit A of christiano pope extrem Plan of Treatment Future Appointment(s):11/05/2019 2:00 pm - Wilber Belle MD at [facility] Xouldtnjen97/08/2019 - Lg Mejia MDI89.0 Lymphedema, not elsewhere classifiedNew Therapy:Physical TherapyReferral:Carlos Quan MD, Surgery ,GeneralFollow up:Follow Up: As qhypseF59.071 Primary osteoarthritis, right ankle and foot Functional Status Description No Information Available Mental Status Description No Information Available Referrals Refer to Dr Reason for Referral Status Appt Date Carlos Quan MD BLE lymphedema Created [address] [place] [address] [phone] Matheus Montelongo MD Sent 04/09/[address] [place] [address] [phone] Lg Mejia MD Sent 02/26/2019 [address] [place] [address] [phone]
[2019-07-31] MEDS ORDERED: Amoxicillin/Clavulanate TAB* 875 MG PO SCH (21:00)
--- NOTE | 2019-07-31 23:45 | DS ---
DISCHARGE SUMMARY: DATE OF ADMISSION: 07/30/19 DATE OF DISCHARGE: 07/31/19 PRIMARY CARE PROVIDERS: Dr. Elvira Hays, Dr. Encarnacion at [facility]. ATTENDING PHYSICIAN: Dr. Barbi Hartley * (dictated by EMELYN Walker). PRIMARY DIAGNOSIS: Fever of unknown origin, suspect bacterial peritonitis. SECONDARY DIAGNOSES: 1. Multiple myeloma, currently being treated with chemotherapy. 2. Diabetes mellitus. 3. Hypertension. 4. History of deep vein thrombosis, on anticoagulation. STUDIES WHILE IN THE HOSPITAL: Abdominal ultrasound, impression: Small amount of ascites. DISCHARGE MEDICATIONS: Home medications: 1. Apixaban 5 mg p.o. b.i.d. 2. Metoprolol tartrate 50 mg p.o. b.i.d. 3. Nifedipine 60 mg p.o. daily. 4. Omeprazole 20 mg p.o. daily. 5. Prednisone 5 mg p.o. daily. New home medications: 1. Amoxicillin/clavulanate 875 mg p.o. b.i.d. HISTORY OF PRESENT ILLNESS/HOSPITAL COURSE: Mr. Alcazar is a 58-year-old male with past medical history of recently diagnosed multiple myeloma, having finished one round of chemotherapy on 07/23/19 at [facility]; diabetes; history of DVT, on anticoagulation, who presented to the ER on 07/30/19 with complaints of fever. The patient states that his VNS nurse called the ambulance and reported a fever of greater than 101. For full and complete details, please see the history and physical dated on 07/30/19, but in short, the patient has no overt symptoms of infection and denies cough, shortness of breath, abdominal pain, nausea, vomiting, diarrhea, dysuria, frequency, urgency, retention. He is admitted through the ER. He has been given 1 dose of Levaquin. His oncologist Dr. Encarnacion recommends paracentesis and Augmentin. The patient was admitted. He was given Tylenol, which relieved his fever. He received an ultrasound the following day that showed a small amount of ascites. The plan was for paracentesis to recover fluid and analyze it for possible peritonitis. The patient is requesting to leave against medical advice. At the time of discharge , he is tachycardic with a low-grade fever of 100.3. He is also noted to have episodes of fever overnight. He was adamantly encouraged to stay for completion of workup as treatment of bacterial peritonitis requires IV antibiotics. He continues to refuse this. He requests p.o. antibiotics to be sent to [facility] pharmacy for him to pickup and begin at home. Long discussion was had about the risks of leaving including worsening of infection, systemic infection, sepsis, and possibly . He understands and accepts this. He is encouraged to return to the ER if his fever continues or does not respond to Tylenol or if he develops shortness of breath, abdominal pain, or any other concerning symptoms. Due to the patient's desire to leave against medical advice, it was recommended that he possibly go to [facility] as he is interested in following with his primary oncologist there. It was suggested that he go there at the time of discharge, but he states he will follow closely with them and plans to see them in the morning. Again, it was recommended that he stay and he and his understand the possible consequences. He will leave against medical advice with discharge on Augmentin. I do believe that the patient requires IV antibiotics and this medication although relatively broad- spectrum will likely be ineffective or at least less effective than IV antibiotics. REVIEW OF SYSTEMS: A 14-point review of systems has been performed and the patient has no complaints at this time. He is noted to have a fever upon discharge but denies feeling febrile. PHYSICAL EXAM: Temperature 100.3 temporal, heart rate 104, respiratory rate 18 , oxygen saturation 100% on room air, blood pressure 163/97. General: Mr. Alcazar is a well-developed, well-nourished, average weight, middle-aged man who is sitting up in bed. He appears to be in no acute distress. He is breathing comfortably. HEENT: PERRL, EOMI. There is some orbital edema in the lower aspect of the orbits bilaterally. Sclerae are nonicteric. Hearing is grossly intact. Oral mucous membranes are moist. There are no lesions. The pharynx is clear. The tongue is at midline. Cardiovascular: Sinus tachycardia with S1 , S2 present without murmurs, rubs, clicks, or gallops. There is no JVD. There is bilateral lower extremity 3+ pitting edema to the pretibial area. Pulmonary: Symmetrical chest expansion without use of accessory muscles. Clear to auscultation bilaterally without rhonchi, wheezes, or rubs. Abdomen: Mildly distended. Trace lower extremity edema. Negative for fluid waves. Nontender to palpation. Musculoskeletal: Full range of motion without pain or deformities. Neuro: The patient is awake. He is alert and oriented x3 with cranial nerves II through XII grossly intact. DISCHARGE PLAN: Mr. Alcazar will be discharged to home against medical advice. CONDITION: Stable. DIET: Resume home diet. ACTIVITY: As tolerated. MEDICATIONS: Start Augmentin 875 mg b.i.d. starting tonight. EDUCATION: 1. Follow up with oncologist, Dr. Encarnacion, as soon as possible. 2. Follow up with primary care provider in 4 to 7 days. 3. Relieve against medical advice. Please return to the ER or nearest hospital if he experiences any worsening of symptoms, worsening of fever, fever that does not respond to Tylenol, return for chest pain or discomfort, shortness of breath, high fever, chills, night sweats, dizziness, lightheadedness, loss of consciousness, or any other worrisome signs or symptoms. This is a summarized report of a complex medical history and hospital stay. For further details, please see the entire medical record. TIME SPENT: Approximately 40 minutes was spent on this discharge, greater than half that time was spent [id number] with the patient discussing discharge plans and instructions. EMELYN MARTEL [id number]/[facility] #: [id number] MTDD
== END 2019-07-31 11:00 | disposition home or self-care (01) ==
LOC: ED 10:42 → MED 20:26 → INTOOBSV 20:26
PROVIDERS: ADMIT Internal Medicine; ATTEND Internal Medicine
DX: R50.9 Fever, unspecified (principal); C90.00 Multiple myeloma not having achieved remission; R18.8 Other ascites; Z92.21 Personal history of antineoplastic chemotherapy; E11.9 Type 2 diabetes mellitus without complications; I10 Essential (primary) hypertension; Z86.718 Personal history of other venous thrombosis and embolism; Z79.01 Long term (current) use of anticoagulants; Z79.899 Other long term (current) drug therapy; Z53.29 Procedure and treatment not carried out because of patient's decision for other reasons; K21.9 Gastro-esophageal reflux disease without esophagitis; Z94.0 Kidney transplant status; R53.1 Weakness
CPT/HCPCS: 36415; 71045; 76705; 80048; 80053; 81003; 81015; 83036; 83605; 84484; 85025; 85060; 85610; 85730; 87040; 87086; 87493; 96365; 96375; 99283; A9270-GY; G0378; J1940; J1956; J7512; P9047